=== PATIENT | male | born 1945 | race Caucasian/White ===

== ENCOUNTER 2019-03-06 05:34 | Day surgery (SDC) | payer MEDICARE ==
[2019-03-03 09:31] VITALS: BMI 166.5
[2019-03-06] MEDS ORDERED: EPINEPHrine 1 MG/ML AMP ONE (06:40)
[2019-03-06] MEDS ORDERED: Thrombin 5000 UNITS/5 ML VIAL ONE (06:40)
[2019-03-06] MEDS ORDERED: Bupivacaine PF 0.5% 30 ML VIAL ONE (06:40)
[2019-03-06] MEDS ORDERED: Fentanyl 100 MCG/2 ML VIAL ONE (06:42)
[2019-03-06 06:46] LABS: Hemoglobin 14.3 g/dL (14.0-18.0); Mean Corpuscular HGB CONC 34.4 g/dL (32.0-36.0); Mean Corpuscular Volume 99.1 fL (78.0-98.0); Mean Platelet Volume 6.9 fL (7.4-10.4); Platelet Count 260 thou/uL (130-400); RBC Distribution Width 12.4 % (11.5-14.5); Red Blood Cell (RBC) Count 4.21 mill/uL (4.70-6.10)
[2019-03-06 07:03] LABS: Anion Gap 13 mmol/L (10-20); BUN (Urea Nitrogen) 14 mg/dL (8.4-25.7); Calc. Creatinine Clearance 90 mL/min (70-130); Calcium 9.1 mg/dL (7.8-10.44); Carbon Dioxide 25 mmol/L (23-31); Chloride 102 mmol/L (98-107); Estimated GFR-MDRD 88; Glucose 91 mg/dL (83-110); Potassium 4.3 mmol/L (3.5-5.1); Sodium 136 mmol/L (136-145)
--- NOTE | 2019-03-06 07:46 | HP ---
HISTORY OF PRESENT ILLNESS: Mr. Ellington is a pleasant 73-year-old gentleman known to us from prior ACDF some 2 years ago. He returns now with many years of bilateral radiculopathies, left much greater than right, lumbar spine compatible with an L5, partial S1 pattern. He brings an MRI from [facility] reveals central mediated disk protrusion at L5 descending to the left and then descending S1 nerve roots as well as severe foraminal stenosis on the left at L5. Both of these would explain his symptoms very well. He reports having falls and is concerned about this numbness over the same distribution of his pain. He has treated this in the past with injections, medications, physical therapy, and unfortunately continues to progressively worsen. PHYSICAL EXAMINATION: GENERAL: He is alert and oriented x3. NEUROLOGICAL: He has a positive straight leg raise on the left. Motor function exam is actually excellent with 5/5 strength in plantar flexion, dorsiflexion of bilateral lower extremities at the ankle, as well as knee extension and flexion. Sensation is grossly intact to the bilateral lower extremities. PAST MEDICAL HISTORY: Significant for osteoarthritis, chronic pain syndrome. PAST SURGICAL HISTORY: ACDF. CURRENT MEDICATIONS: None. ALLERGIES: NO KNOWN DRUG ALLERGIES. ASSESSMENT: Lumbar radiculopathy. PLAN: Dr. Wiseman met with the patient, reviewed imaging, advocated for a left L5 decompression. He explained to the patient the risks, benefits, and alternatives to the procedure. The patient expressed understanding and elected to move forward with the surgery as discussed. I do believe the patient is mentally competent and capable of making medical decisions for himself. We will move forward with surgery as planned. Job ID: [id number]
[2019-03-06] MEDS ORDERED: Morphine 4 MG/ML VIAL ONE (08:23)
[2019-03-06] MEDS ORDERED: Tamsulosin HCl 0.4 MG CAP ONE (09:39)
--- NOTE | 2019-03-06 10:28 | OP ---
DATE OF PROCEDURE: 03/06/2019 COORDINATOR HOTELS: Bucky Morales PA-C INDICATION: Pain. DIAGNOSIS: Lumbar radiculopathy. PROCEDURE: Left L5 decompression. ANESTHESIA: General. TECHNIQUE: The patient was brought into the operating room and placed under general anesthesia. He was flipped from the supine to prone position on the operating room table. A linear incision was planned over the L5-S1 segment. After prepping and draping and after an appropriate operative pause, the incision was created. The soft tissues were swept left of midline. A self-retaining retractor was placed and a C-arm image was obtained to confirm the appropriate level. After confirming the appropriate level with C-arm fluoroscopy, a high-speed cutting drill bit, as well as 1-, 2- and 3-mm Kerrisons were used to perform a laminectomy along the inferior aspect of L5 on the left. The foraminotomy was extended laterally to encompass the medial aspect of the facet joint, therefore, the foramen over the exiting L5 nerve root in order to decompress the proximal aspect of the exiting L5 and the descending left S1 nerve root. After completing the decompression, the wound was irrigated. Hemostasis was maintained throughout. The wound was then closed in anatomic layers and a pressure dressing was applied. There were no known procedural complications. Job ID: [id number]
[2019-03-06] MEDS ORDERED: Glycopyrrolate 0.2 MG/ML 5 ML SYRINGE ONE (10:46)
[2019-03-06] MEDS ORDERED: Ketorolac Tromethamine 30 MG/ML VIAL ONE (10:46)
[2019-03-06] MEDS ORDERED: PHENYLEPHRINE-NS 100 MCG/ML 10 ML SYRINGE ONE (10:46)
[2019-03-06] MEDS ORDERED: Dexamethasone 20 MG/5 ML VIAL ONE (10:46)
[2019-03-06] MEDS ORDERED: Ondansetron PF 4 MG/2 ML Vial ONE (10:46)
[2019-03-06] MEDS ORDERED: Lidocaine 1% PF 5 ML VIAL ONE (10:46)
[2019-03-06] MEDS ORDERED: Rocuronium Bromide 10 MG/ML (10ML VIAL) ONE (10:46)
[2019-03-06] MEDS ORDERED: PROPOFOL 200 MG/20 ML VIAL ONE (10:46)
[2019-03-06] MEDS ORDERED: Acetaminophen/Codeine 30-300mg Tablet ONE (11:04)
--- NOTE | 2019-03-07 11:04 | EKG ---
Test Reason : PREOP Blood Pressure : / mmHG Vent. Rate : 079 BPM Atrial Rate : 079 BPM P-R Int : 128 ms QRS Dur : 098 ms QT Int : 396 ms P-R-T Axes : 065 065 081 degrees QTc Int : 454 ms Sinus rhythm with Premature supraventricular complexes Otherwise normal ECG When compared with ECG of 27-SEP-2016 22:19, Premature ventricular complexes are no longer Present Premature supraventricular complexes are now Present Confirmed by DR. Fabian GALARZA ([id number]) on 03/07/2019 11:03:54 AM Referred By: GUMARO Confirmed By:DR. Fabian GALARZA
== END 2019-03-06 11:20 | disposition home or self-care (01) ==
LOC: SDC 05:34
PROVIDERS: ATTEND Neurological Surgery
PROC: 01NB0ZZ Release Lumbar Nerve, Open Approach (ICD-10-PCS; principal; 2019-03-06)
DX: M48.061 Spinal stenosis, lumbar region without neurogenic claudication (principal); M51.16 Intervertebral disc disorders with radiculopathy, lumbar region; M19.90 Unspecified osteoarthritis, unspecified site; G89.4 Chronic pain syndrome; Z91.041 Radiographic dye allergy status; Z98.1 Arthrodesis status
CPT/HCPCS: 36415; 76000; 80048; 85027; 93005; 93010; J0171; J0690; J1100; J1885; J2001; J2270; J2405; J2704; J3010; S0020

== ENCOUNTER 2020-07-15 12:17 | Inpatient (IN) | payer MEDICARE ==
[~2020-07-15 12:17] MED LIST: Iopamidol-370 76% 500 ML 1 ML ONE
[2020-07-15 12:55] LABS: #Eosinphils 0.2 thou/uL (0.0-0.7); #Lymphocytes 0.7 thou/uL (1.20-3.40); #Monocytes 0.9 thou/uL (0.11-0.59); #Neutrophils 10.1 thou/uL (1.40-6.50); %Basophils 0.2 % (0.0-1.0); %Eosinophils 1.9 % (0.0-10.0); %Lymphocytes 6.2 % (21.0-51.0); %Monocytes 7.6 % (0.0-10.0); %Neutrophils 84.2 % (42.0-75.0); Hemoglobin 14.4 g/dL (14.0-18.0); Mean Corpuscular HGB CONC 32.8 g/dL (32.0-36.0); Mean Corpuscular Hemoglobin 31.3 pg (27.0-31.0); Mean Corpuscular Volume 95.5 fL (78.0-98.0); Platelet Count 336 thou/uL (130-400); RBC Distribution Width 12.8 % (11.5-14.5)
[2020-07-15 13:11] LABS: ALT (SGPT) 14 U/L (8-55); AST (SGOT) 29 U/L (5-34); Albumin 4.1 g/dL (3.4-4.8); Alkaline Phosphatase 221 U/L (40-110); Anion Gap 16 mmol/L (10-20); BUN (Urea Nitrogen) 11 mg/dL (8.4-25.7); Bilirubin, Total 0.4 mg/dL (0.2-1.2); Calc. Creatinine Clearance 0 mL/min (70-130); Calcium 9.5 mg/dL (7.8-10.44); Carbon Dioxide 23 mmol/L (23-31); Chloride 100 mmol/L (98-107); Glucose 113 mg/dL (83-110); Potassium 3.6 mmol/L (3.5-5.1); Protein, Total 7.1 g/dL (5.8-8.1); Sodium 135 mmol/L (136-145)
[2020-07-15] MEDS ORDERED: Famotidine/PF 20 mg/2ml Vial ONE (13:59)
[2020-07-15] MEDS ORDERED: methylPREDNISolone Sod Succ/PF 125 MG/2 ML VIAL ONE (13:59)
[2020-07-15] MEDS ORDERED: diphenhydrAMINE 50 MG/ML VIAL ONE (13:59)
[2020-07-15 15:55] LABS: Bacteria/HPF None Seen HPF (None Seen); Bilirubin Negative (Negative); Blood, Urine Negative (Negative); Clarity Clear (Clear); Glucose, Urine (Dipstick) Normal (Negative); Ketone, Urine 10 mg/dL (Negative); Leukocyte Negative Leu/uL (Negative); Nitrite Negative (Negative); Protein, Urine (Dipstick) 100 mg/dL (Neg-Trace); RBC/HPF None Seen HPF (0-3); Specific Gravity, Urine 1.014 (1.002-1.036); Squamous Epithelial 0-3 HPF (0-3); Urobilinogen Normal mg/dL (Less than 2); WBC/HPF 0-3 HPF (0-3)
[2020-07-15] MEDS ORDERED: Ondansetron ODT 4 MG TAB PO PRN (16:50)
[2020-07-15] MEDS ORDERED: Senokot S 8.6-50 MG TAB PO PRN (16:50)
[2020-07-15] MEDS ORDERED: Acetaminophen 325 MG TAB PO PRN (16:50)
[2020-07-15 17:52] LABS: #Basophils 0.1 thou/uL (0.0-0.2); #Lymphocytes 0.6 thou/uL (1.20-3.40); #Monocytes 0.1 thou/uL (0.11-0.59); #Neutrophils 13.2 thou/uL (1.40-6.50); %Basophils 0.7 % (0.0-1.0); %Eosinophils 0.1 % (0.0-10.0); %Monocytes 0.4 % (0.0-10.0); %Neutrophils 94.9 % (42.0-75.0); Hemoglobin 14.3 g/dL (14.0-18.0); Mean Corpuscular HGB CONC 33.4 g/dL (32.0-36.0); Mean Corpuscular Hemoglobin 31.9 pg (27.0-31.0); Mean Corpuscular Volume 95.5 fL (78.0-98.0); Platelet Count 311 thou/uL (130-400); RBC Distribution Width 12.8 % (11.5-14.5); Red Blood Cell (RBC) Count 4.49 mill/uL (4.70-6.10); White Blood Cell (WBC) Count 13.9 thou/uL (4.8-10.8)
[2020-07-15] MEDS ORDERED: Morphine 4 MG/ML VIAL SLOW IVP PRN (18:58)
[2020-07-15] MEDS: hydrALAZINE 25 MG TAB PO SCH (20:17)
[2020-07-15] MEDS: Metoprolol Tartrate 5 MG/5 ML VIAL IVP PRN (20:17)
[2020-07-15] MEDS ORDERED: Bisacodyl 5 MG TAB PO SCH (21:15)
[2020-07-15 23:00] VITALS: BMI 25.0
[2020-07-16] MEDS: Polyethylene Glycol 3350 17 GM Packet PO SCH ×2 (00:14→05:24)
[2020-07-16 01:53] LABS: SARS-CoV-2 NAA Rapid Test Not Detected (NotDetected)
[2020-07-16] MEDS ORDERED: Bisacodyl 10 MG SUPP PR SCH (04:15)
[2020-07-16 06:07] LABS: #Lymphocytes 0.9 thou/uL (1.20-3.40); #Monocytes 0.8 thou/uL (0.11-0.59); #Neutrophils 8.8 thou/uL (1.40-6.50); %Basophils 0.1 % (0.0-1.0); %Eosinophils 0.1 % (0.0-10.0); %Lymphocytes 8.1 % (21.0-51.0); %Monocytes 7.6 % (0.0-10.0); %Neutrophils 84.1 % (42.0-75.0); Mean Corpuscular HGB CONC 33.3 g/dL (32.0-36.0); Mean Corpuscular Hemoglobin 31.6 pg (27.0-31.0); Mean Platelet Volume 7.2 fL (7.4-10.4); Platelet Count 299 thou/uL (130-400); RBC Distribution Width 12.8 % (11.5-14.5); Red Blood Cell (RBC) Count 4.43 mill/uL (4.70-6.10); White Blood Cell (WBC) Count 10.5 thou/uL (4.8-10.8)
[2020-07-16 06:27] LABS: ALT (SGPT) 16 U/L (8-55); AST (SGOT) 26 U/L (5-34); Albumin 3.7 g/dL (3.4-4.8); Alkaline Phosphatase 183 U/L (40-110); Anion Gap 15 mmol/L (10-20); BUN (Urea Nitrogen) 13 mg/dL (8.4-25.7); Bilirubin, Total 0.4 mg/dL (0.2-1.2); Calc. Creatinine Clearance 75 mL/min (70-130); Carbon Dioxide 20 mmol/L (23-31); Chloride 99 mmol/L (98-107); Globulin 2.9 g/dL (2.4-3.5); Glucose 158 mg/dL (83-110); Potassium 3.5 mmol/L (3.5-5.1); Protein, Total 6.6 g/dL (5.8-8.1); Sodium 130 mmol/L (136-145)
[2020-07-16] MEDS: hydrALAZINE 25 MG TAB PO SCH ×3 (08:23→21:23)
[2020-07-16] MEDS ORDERED: Sodium Chloride 0.9% 1,000 ML IV SCH ×2 (08:45→16:12)
[2020-07-16] MEDS ORDERED: Fentanyl 100 MCG/2 ML VIAL ONE (11:55)
[2020-07-16] MEDS ORDERED: PROPOFOL 200 MG/20 ML VIAL ONE (12:17)
[2020-07-16] MEDS ORDERED: Succinylcholine 200 MG/10 ml SYRINGE FS ONE (12:17)
[2020-07-16] MEDS ORDERED: Rocuronium Bromide 10 MG/ML (10ML VIAL) ONE (12:17)
[2020-07-16] MEDS ORDERED: Lidocaine 1% PF 5 ML VIAL ONE (12:17)
[2020-07-16] MEDS ORDERED: Dexamethasone 20 MG/5 ML VIAL ONE (12:17)
[2020-07-16] MEDS ORDERED: Ondansetron PF 4 MG/2 ML Vial ONE (12:17)
[2020-07-16] MEDS ORDERED: Glycopyrrolate 0.2 MG/ML 5 ML SYRINGE ONE (12:17)
[2020-07-16] MEDS ORDERED: MEROPENEM 1 GM/50 ML 1 GM in Premix Bag 1 BAG IVPB SCH (15:45)
[2020-07-17 06:21] LABS: #Lymphocytes 0.9 thou/uL (1.20-3.40); #Monocytes 1.4 thou/uL (0.11-0.59); #Neutrophils 11.2 thou/uL (1.40-6.50); %Basophils 0.2 % (0.0-1.0); %Eosinophils 0.1 % (0.0-10.0); %Lymphocytes 6.6 % (21.0-51.0); %Monocytes 10.2 % (0.0-10.0); %Neutrophils 82.8 % (42.0-75.0); Hemoglobin 13.4 g/dL (14.0-18.0); Mean Corpuscular HGB CONC 31.8 g/dL (32.0-36.0); Mean Corpuscular Hemoglobin 30.6 pg (27.0-31.0); Mean Corpuscular Volume 96.1 fL (78.0-98.0); Mean Platelet Volume 7.4 fL (7.4-10.4); Platelet Count 284 thou/uL (130-400); RBC Distribution Width 13.1 % (11.5-14.5); Red Blood Cell (RBC) Count 4.37 mill/uL (4.70-6.10); White Blood Cell (WBC) Count 13.5 thou/uL (4.8-10.8)
[2020-07-17] MEDS: Metoprolol Tartrate 5 MG/5 ML VIAL IVP PRN (06:29)
[2020-07-17 06:45] LABS: Anion Gap 12 mmol/L (10-20); Calc. Creatinine Clearance 86 mL/min (70-130); Calcium 8.5 mg/dL (7.8-10.44); Carbon Dioxide 24 mmol/L (23-31); Chloride 102 mmol/L (98-107); Glucose 105 mg/dL (83-110); Potassium 3.8 mmol/L (3.5-5.1); Sodium 134 mmol/L (136-145)
[2020-07-17 06:53] LABS: BUN (Urea Nitrogen) 17 mg/dL (8.4-25.7)
[2020-07-17] MEDS: hydrALAZINE 20 MG/ML VIAL SLOW IVP PRN (09:10)
[2020-07-17] MEDS: hydrALAZINE 25 MG TAB PO SCH ×2 (09:13→21:01)
[2020-07-17] MEDS ORDERED: Ketamine 50 MG/ML (10ML VIAL) ONE (13:40)
[2020-07-17] MEDS ORDERED: Fentanyl 100 MCG/2 ML VIAL ONE ×2 (13:40→13:55)
[2020-07-17] MEDS ORDERED: Bupivacaine PF 0.5% 30 ML VIAL ONE (13:58)
[2020-07-17] MEDS ORDERED: XYLOCAINE 2%-EPI 1:100,000 20 ML VIAL ONE (13:58)
[2020-07-17] MEDS ORDERED: Rocuronium Bromide 10 MG/ML (10ML VIAL) ONE (14:21)
[2020-07-17] MEDS ORDERED: Ondansetron PF 4 MG/2 ML Vial ONE (14:21)
[2020-07-17] MEDS ORDERED: Succinylcholine 200 MG/10 ml SYRINGE FS ONE (14:21)
[2020-07-17] MEDS ORDERED: PROPOFOL 200 MG/20 ML VIAL ONE (14:21)
[2020-07-17] MEDS ORDERED: Lidocaine 1% PF 5 ML VIAL ONE (14:21)
[2020-07-17] MEDS ORDERED: PHENYLEPHRINE-NS 100 MCG/ML 10 ML SYRINGE ONE (14:21)
[2020-07-17] MEDS ORDERED: Dexamethasone 20 MG/5 ML VIAL ONE (14:21)
[2020-07-17] MEDS ORDERED: Glycopyrrolate 0.2 MG/ML 5 ML SYRINGE ONE (14:21)
[2020-07-17] MEDS ORDERED: Bupivacaine HCl 0.5%/Epinephrine 1:200,000/PF 30 ml Vial ONE (14:21)
[2020-07-17] MEDS ORDERED: SUGAMMADEX SODIUM 200 MG/2 ML VIAL ONE (15:15)
[2020-07-17] MEDS ORDERED: Ketorolac Tromethamine 30 MG/ML VIAL IVP PRN (15:36)
[2020-07-17] MEDS ORDERED: Acetaminophen 500 MG TAB PO PRN (15:36)
[2020-07-17] MEDS ORDERED: traMADol HCl 50 MG TAB PO PRN (15:36)
[2020-07-17] MEDS ORDERED: Ibuprofen 600 MG TAB PO PRN (15:36)
[2020-07-17] MEDS ORDERED: Morphine 4 MG/ML VIAL SLOW IVP PRN (15:39)
[2020-07-17] MEDS: Sodium Chloride 0.9% 1,000 ML IV SCH (17:38)
[2020-07-17] MEDS: Gabapentin 300 MG CAP PO SCH (21:01)
[2020-07-18 06:27] LABS: #Eosinphils 0.1 thou/uL (0.0-0.7); #Lymphocytes 0.8 thou/uL (1.20-3.40); #Monocytes 1.5 thou/uL (0.11-0.59); #Neutrophils 9.4 thou/uL (1.40-6.50); %Basophils 0.1 % (0.0-1.0); %Eosinophils 1.3 % (0.0-10.0); %Monocytes 12.6 % (0.0-10.0); Hemoglobin 13.7 g/dL (14.0-18.0); Mean Corpuscular HGB CONC 32.1 g/dL (32.0-36.0); Mean Corpuscular Hemoglobin 31.5 pg (27.0-31.0); Mean Platelet Volume 7.5 fL (7.4-10.4); Platelet Count 249 thou/uL (130-400); RBC Distribution Width 13.2 % (11.5-14.5); Red Blood Cell (RBC) Count 4.35 mill/uL (4.70-6.10); White Blood Cell (WBC) Count 11.9 thou/uL (4.8-10.8)
[2020-07-18] MEDS: Gabapentin 300 MG CAP PO SCH ×2 (08:28→15:53)
[2020-07-18] MEDS: hydrALAZINE 25 MG TAB PO SCH ×2 (08:28→20:30)
[2020-07-18 08:37] LABS: Anion Gap 10 mmol/L (10-20); BUN (Urea Nitrogen) 16 mg/dL (8.4-25.7); Calc. Creatinine Clearance 96 mL/min (70-130); Carbon Dioxide 28 mmol/L (23-31); Chloride 103 mmol/L (98-107); Glucose 97 mg/dL (83-110); Magnesium 2.1 mg/dL (1.6-2.6); Sodium 137 mmol/L (136-145)
[2020-07-18] MEDS: Sodium Chloride 0.9% 1,000 ML IV SCH ×2 (11:21→14:13)
[2020-07-19 05:47] LABS: #Eosinphils 0.5 thou/uL (0.0-0.7); #Lymphocytes 0.8 thou/uL (1.20-3.40); #Monocytes 1.1 thou/uL (0.11-0.59); #Neutrophils 8.8 thou/uL (1.40-6.50); %Basophils 0.2 % (0.0-1.0); %Eosinophils 4.4 % (0.0-10.0); %Lymphocytes 7.5 % (21.0-51.0); %Monocytes 9.6 % (0.0-10.0); %Neutrophils 78.3 % (42.0-75.0); Hemoglobin 12.8 g/dL (14.0-18.0); Mean Corpuscular HGB CONC 31.5 g/dL (32.0-36.0); Mean Corpuscular Hemoglobin 31.1 pg (27.0-31.0); Mean Corpuscular Volume 98.5 fL (78.0-98.0); Mean Platelet Volume 7.1 fL (7.4-10.4); Platelet Count 252 thou/uL (130-400); RBC Distribution Width 13.1 % (11.5-14.5); Red Blood Cell (RBC) Count 4.11 mill/uL (4.70-6.10); White Blood Cell (WBC) Count 11.2 thou/uL (4.8-10.8)
[2020-07-19 06:13] LABS: Anion Gap 10 mmol/L (10-20); BUN (Urea Nitrogen) 16 mg/dL (8.4-25.7); Calc. Creatinine Clearance 91 mL/min (70-130); Calcium 8.2 mg/dL (7.8-10.44); Carbon Dioxide 27 mmol/L (23-31); Chloride 102 mmol/L (98-107); Glucose 96 mg/dL (83-110); Magnesium 1.9 mg/dL (1.6-2.6); Potassium 3.6 mmol/L (3.5-5.1); Sodium 135 mmol/L (136-145)
[2020-07-19] MEDS: Tamsulosin HCl 0.4 MG CAP PO SCH (09:42)
[2020-07-19] MEDS: hydrALAZINE 25 MG TAB PO SCH ×2 (09:42→20:12)
[2020-07-20] MEDS: hydrALAZINE 20 MG/ML VIAL SLOW IVP PRN (04:25)
[2020-07-20 06:26] LABS: #Eosinphils 0.6 thou/uL (0.0-0.7); #Lymphocytes 0.8 thou/uL (1.20-3.40); #Monocytes 1.2 thou/uL (0.11-0.59); #Neutrophils 8.5 thou/uL (1.40-6.50); %Basophils 0.1 % (0.0-1.0); %Eosinophils 5.5 % (0.0-10.0); %Lymphocytes 7.1 % (21.0-51.0); %Monocytes 10.9 % (0.0-10.0); %Neutrophils 76.4 % (42.0-75.0); Hemoglobin 12.8 g/dL (14.0-18.0); Mean Corpuscular Hemoglobin 31.9 pg (27.0-31.0); Mean Corpuscular Volume 96.6 fL (78.0-98.0); Platelet Count 208 thou/uL (130-400); RBC Distribution Width 12.8 % (11.5-14.5); White Blood Cell (WBC) Count 11.2 thou/uL (4.8-10.8)
[2020-07-20 06:49] LABS: Anion Gap 11 mmol/L (10-20); BUN (Urea Nitrogen) 10 mg/dL (8.4-25.7); Calc. Creatinine Clearance 102 mL/min (70-130); Calcium 8.4 mg/dL (7.8-10.44); Carbon Dioxide 26 mmol/L (23-31); Chloride 101 mmol/L (98-107); Glucose 109 mg/dL (83-110); Magnesium 1.8 mg/dL (1.6-2.6); Potassium 3.6 mmol/L (3.5-5.1); Sodium 134 mmol/L (136-145)
[2020-07-20] MEDS: hydrALAZINE 25 MG TAB PO SCH (08:09)
[2020-07-20] MEDS: Tamsulosin HCl 0.4 MG CAP PO SCH (08:10)
[2020-07-20 11:40] VITALS: BP 133/70; TEMP 98.5
== END 2020-07-20 12:21 | disposition home or self-care (01) | DRG 330 ==
LOC: ERS 12:17 → SURG B 16:34
PROVIDERS: ADMIT Internal Medicine; ATTEND Internal Medicine
PROC: 0DBP8ZX Excision of Rectum, Via Natural or Artificial Opening Endoscopic, Diagnostic (ICD-10-PCS; 2020-07-16)
PROC: 0D1L0Z4 Bypass Transverse Colon to Cutaneous, Open Approach (ICD-10-PCS; principal; 2020-07-17)
PROC: 0JH60WZ Insertion of Totally Implantable Vascular Access Device into Chest Subcutaneous Tissue and Fascia, Open Approach (ICD-10-PCS; 2020-07-17)
PROC: 02HV33Z Insertion of Infusion Device into Superior Vena Cava, Percutaneous Approach (ICD-10-PCS; 2020-07-17)
PROC: B5180ZA Fluoroscopy of Superior Vena Cava using High Osmolar Contrast, Guidance (ICD-10-PCS; 2020-07-17)
PROC: 0T9B70Z Drainage of Bladder with Drainage Device, Via Natural or Artificial Opening (ICD-10-PCS; 2020-07-18)
DX: C19 Malignant neoplasm of rectosigmoid junction (principal); C78.7 Secondary malignant neoplasm of liver and intrahepatic bile duct; C78.02 Secondary malignant neoplasm of left lung; C78.01 Secondary malignant neoplasm of right lung; E87.1 Hypo-osmolality and hyponatremia; K56.7 Ileus, unspecified; F10.10 Alcohol abuse, uncomplicated; D72.829 Elevated white blood cell count, unspecified; N40.1 Benign prostatic hyperplasia with lower urinary tract symptoms; Z20.822 Contact with and (suspected) exposure to COVID-19; I10 Essential (primary) hypertension; R00.0 Tachycardia, unspecified; R33.8 Other retention of urine; Z87.891 Personal history of nicotine dependence; Z80.0 Family history of malignant neoplasm of digestive organs
CPT/HCPCS: 36415; 71045; 74177; 80048; 80053; 81003; 81015; 82378; 83605; 83690; 83735; 84484; 85025; 87635; 88305; 88361; 88374; 93005; 93010; 96374; 96375; C1788; J0360; J0690; J1100; J1200; J1642; J2270; J2405; J2704; J2930; J3010; Q9967; S0020; S0028; U0002; U0003; U0005

== ENCOUNTER 2020-07-21 20:57 | Inpatient (IN) | payer MEDICARE ==
[2020-07-21] MEDS ORDERED: Famotidine/PF 20 mg/2ml Vial ONE (21:40)
[2020-07-21] MEDS ORDERED: methylPREDNISolone Sod Succ 40 MG VIAL ONE (21:40)
[2020-07-21] MEDS ORDERED: Ondansetron PF 4 MG/2 ML Vial ONE (21:40)
[2020-07-21] MEDS ORDERED: diphenhydrAMINE 50 MG/ML VIAL ONE (21:40)
[2020-07-21] MEDS ORDERED: Piperacillin/Tazobactam 4.5 GM VIAL ONE (21:40)
[2020-07-21 22:03] LABS: ALT (SGPT) 40 U/L (8-55); AST (SGOT) 49 U/L (5-34); Albumin 3.2 g/dL (3.4-4.8); Alkaline Phosphatase 269 U/L (40-110); Anion Gap 14 mmol/L (10-20); BUN (Urea Nitrogen) 11 mg/dL (8.4-25.7); Bilirubin, Total 0.9 mg/dL (0.2-1.2); Calc. Creatinine Clearance 0 mL/min (70-130); Calcium 8.5 mg/dL (7.8-10.44); Carbon Dioxide 25 mmol/L (23-31); Chloride 95 mmol/L (98-107); Globulin 2.7 g/dL (2.4-3.5); Glucose 118 mg/dL (83-110); Lipase 97 U/L (8-78); Potassium 3.8 mmol/L (3.5-5.1); Protein, Total 5.9 g/dL (5.8-8.1); Sodium 130 mmol/L (136-145)
[2020-07-21 22:08] LABS: Hemoglobin 13.1 g/dL (14.0-18.0); Mean Corpuscular HGB CONC 34.3 g/dL (32.0-36.0); Mean Corpuscular Hemoglobin 33.1 pg (27.0-31.0); Mean Corpuscular Volume 96.5 fL (78.0-98.0); RBC Distribution Width 12.7 % (11.5-14.5); Red Blood Cell (RBC) Count 3.97 mill/uL (4.70-6.10)
[2020-07-21] MEDS ORDERED: Vancomycin 1 GM/200 ML BAG ONE (22:23)
[2020-07-21 22:29] LABS: Band 23 % (5-11); Eosinophils 2 % (0-10); Lymphocytes 2 % (21-51); MDiff Complete? YES; Mean Platelet Volume 6.9 fL (7.4-10.4); Monocytes 3 % (0-10); Neutrophil 70 % (42-75); Platelet Count 216 thou/uL (130-400); White Blood Cell (WBC) Count 14.4 thou/uL (4.8-10.8)
[2020-07-22] MEDS ORDERED: Ondansetron ODT 4 MG TAB PO PRN (00:33)
[2020-07-22] MEDS ORDERED: HYDROcodone/Acetaminophen 5/325 mg Tablet PO PRN (00:33)
[2020-07-22] MEDS ORDERED: Ondansetron PF 4 MG/2 ML Vial IVP PRN (00:33)
[2020-07-22] MEDS ORDERED: Vancomycin 1 GM in Premix Bag 1 BAG IVPB SCH (02:15)
[2020-07-22] MEDS: Sodium Chloride 0.9% 1,000 ML IV SCH ×3 (03:00→21:11)
[2020-07-22] MEDS ORDERED: Vancomycin 1 GM/200 ML BAG ONE (03:26)
[2020-07-22 05:36] LABS: #Basophils 0.1 thou/uL (0.0-0.2); #Lymphocytes 0.3 thou/uL (1.20-3.40); #Monocytes 0.2 thou/uL (0.11-0.59); #Neutrophils 11.3 thou/uL (1.40-6.50); %Basophils 0.4 % (0.0-1.0); %Lymphocytes 2.1 % (21.0-51.0); %Monocytes 1.9 % (0.0-10.0); %Neutrophils 95.5 % (42.0-75.0); Hemoglobin 11.4 g/dL (14.0-18.0); Mean Corpuscular Volume 96.6 fL (78.0-98.0); Mean Platelet Volume 6.9 fL (7.4-10.4); Platelet Count 213 thou/uL (130-400); RBC Distribution Width 12.8 % (11.5-14.5); Red Blood Cell (RBC) Count 3.81 mill/uL (4.70-6.10); White Blood Cell (WBC) Count 11.9 thou/uL (4.8-10.8)
[2020-07-22 05:52] LABS: Anion Gap 12 mmol/L (10-20); BUN (Urea Nitrogen) 9 mg/dL (8.4-25.7); Calc. Creatinine Clearance 103 mL/min (70-130); Calcium 8.1 mg/dL (7.8-10.44); Carbon Dioxide 25 mmol/L (23-31); Chloride 100 mmol/L (98-107); Glucose 154 mg/dL (83-110); Potassium 4.1 mmol/L (3.5-5.1); Sodium 133 mmol/L (136-145)
[2020-07-22] MEDS ORDERED: Labetalol HCl 100 MG/20 ML VIAL SLOW IVP PRN (08:36)
[2020-07-22] MEDS ORDERED: Sodium Chloride 0.65% Nasal 44 ML BOT EA NARE PRN (08:36)
[2020-07-22] MEDS ORDERED: Senokot S 8.6-50 MG TAB PO PRN (08:36)
[2020-07-22] MEDS ORDERED: Cepastat Lozenges 1 LOZ PO PRN (08:36)
[2020-07-22] MEDS ORDERED: Bisacodyl 5 MG TAB PO PRN (08:36)
[2020-07-22] MEDS ORDERED: GUAIFENESIN SF SOLN 200 MG/10 ML UDCUP PO PRN (08:36)
[2020-07-22] MEDS ORDERED: Loratadine 10 MG TAB PO PRN (08:36)
[2020-07-22] MEDS ORDERED: Metoprolol Tartrate 5 MG/5 ML VIAL IVP PRN ×2 (08:37→19:52)
[2020-07-22] MEDS ORDERED: Pantoprazole 40 MG VIAL IVP SCH (09:00)
[2020-07-22] MEDS: Piperacillin/Tazobactam 3.375 GM in Sodium Chloride 0.9% 100 ML IVPB SCH ×3 (10:55→21:15)
[2020-07-22] MEDS ORDERED: Vancomycin HCl 1.5 GM in Sodium Chloride 0.9% 500 ML IVPB SCH (11:00)
[2020-07-22] MEDS: Tamsulosin HCl 0.4 MG CAP PO SCH (11:46)
[2020-07-22] MEDS: Enoxaparin Sodium 40 MG/0.4 ML SYRINGE SC SCH (11:46)
[2020-07-22] MEDS: Morphine 4 MG/ML VIAL SLOW IVP PRN (11:55)
[2020-07-22 14:13] LABS: SARS-CoV-2 PCR by NAA Not Detected (NotDetected)
[2020-07-22] MEDS: VANCOMYCIN 1.25 GM/250 ML BAG 1.25 GM in Premix Bag 1 BAG IVPB SCH (14:50)
[2020-07-22] MEDS: Acetaminophen 325 MG TAB PO PRN (16:14)
[2020-07-23] MEDS: VANCOMYCIN 1.25 GM/250 ML BAG 1.25 GM in Premix Bag 1 BAG IVPB SCH (01:48)
[2020-07-23] MEDS: Sodium Chloride 0.9% 1,000 ML IV SCH (01:49)
[2020-07-23 04:48] LABS: #Eosinphils 0.2 thou/uL (0.0-0.7); #Lymphocytes 0.7 thou/uL (1.20-3.40); #Monocytes 1.2 thou/uL (0.11-0.59); #Neutrophils 10.8 thou/uL (1.40-6.50); %Basophils 0.2 % (0.0-1.0); %Eosinophils 1.2 % (0.0-10.0); %Lymphocytes 5.6 % (21.0-51.0); %Monocytes 9.1 % (0.0-10.0); %Neutrophils 83.8 % (42.0-75.0); Hemoglobin 11.4 g/dL (14.0-18.0); Mean Corpuscular HGB CONC 32.7 g/dL (32.0-36.0); Mean Corpuscular Hemoglobin 31.7 pg (27.0-31.0); Mean Platelet Volume 6.7 fL (7.4-10.4); Platelet Count 235 thou/uL (130-400); RBC Distribution Width 12.9 % (11.5-14.5); Red Blood Cell (RBC) Count 3.59 mill/uL (4.70-6.10); White Blood Cell (WBC) Count 12.8 thou/uL (4.8-10.8)
[2020-07-23 05:19] LABS: ALT (SGPT) 23 U/L (8-55); AST (SGOT) 23 U/L (5-34); Albumin 2.5 g/dL (3.4-4.8); Alkaline Phosphatase 168 U/L (40-110); Anion Gap 11 mmol/L (10-20); BUN (Urea Nitrogen) 10 mg/dL (8.4-25.7); Bilirubin, Total 0.4 mg/dL (0.2-1.2); Calc. Creatinine Clearance 104 mL/min (70-130); Calcium 7.9 mg/dL (7.8-10.44); Carbon Dioxide 26 mmol/L (23-31); Chloride 102 mmol/L (98-107); Globulin 2.6 g/dL (2.4-3.5); Glucose 106 mg/dL (83-110); Magnesium 1.7 mg/dL (1.6-2.6); Phosphorus 2.3 mg/dL (2.3-4.7); Potassium 3.6 mmol/L (3.5-5.1); Protein, Total 5.1 g/dL (5.8-8.1); Sodium 135 mmol/L (136-145)
[2020-07-23] MEDS: Piperacillin/Tazobactam 3.375 GM in Sodium Chloride 0.9% 100 ML IVPB SCH ×3 (05:38→20:29)
[2020-07-23] MEDS: Enoxaparin Sodium 40 MG/0.4 ML SYRINGE SC SCH (07:52)
[2020-07-23] MEDS: Tamsulosin HCl 0.4 MG CAP PO SCH (07:52)
[2020-07-23] MEDS: Saccharomyces boulardii 250 MG CAP PO SCH (07:52)
[2020-07-23] MEDS: Acetaminophen 325 MG TAB PO PRN ×2 (07:53→20:44)
[2020-07-23] MEDS ORDERED: Nebivolol HCl 5 MG TAB PO SCH ×2 (09:00→12:30)
[2020-07-23 13:19] LABS: Vancomycin, Trough 13.2 ug/mL
[2020-07-23] MEDS: Vancomycin 1.5 GRAM/300 ML BAG 1.5 GM in Premix Bag 1 BAG IVPB SCH (14:55)
[2020-07-23] MEDS: Morphine 4 MG/ML VIAL SLOW IVP PRN (14:56)
[2020-07-24] MEDS: Vancomycin 1.5 GRAM/300 ML BAG 1.5 GM in Premix Bag 1 BAG IVPB SCH ×2 (01:33→15:24)
[2020-07-24 04:53] LABS: #Eosinphils 0.6 thou/uL (0.0-0.7); #Lymphocytes 0.8 thou/uL (1.20-3.40); #Monocytes 1.4 thou/uL (0.11-0.59); #Neutrophils 8.7 thou/uL (1.40-6.50); %Basophils 0.1 % (0.0-1.0); %Eosinophils 4.9 % (0.0-10.0); %Lymphocytes 6.7 % (21.0-51.0); %Monocytes 12.5 % (0.0-10.0); %Neutrophils 75.9 % (42.0-75.0); Hemoglobin 11.2 g/dL (14.0-18.0); Mean Corpuscular HGB CONC 32.6 g/dL (32.0-36.0); Mean Corpuscular Hemoglobin 31.8 pg (27.0-31.0); Mean Corpuscular Volume 97.5 fL (78.0-98.0); Platelet Count 251 thou/uL (130-400); RBC Distribution Width 12.8 % (11.5-14.5); Red Blood Cell (RBC) Count 3.52 mill/uL (4.70-6.10); White Blood Cell (WBC) Count 11.5 thou/uL (4.8-10.8)
[2020-07-24 05:21] LABS: Anion Gap 11 mmol/L (10-20); BUN (Urea Nitrogen) 9 mg/dL (8.4-25.7); Calc. Creatinine Clearance 107 mL/min (70-130); Calcium 8.2 mg/dL (7.8-10.44); Carbon Dioxide 25 mmol/L (23-31); Chloride 103 mmol/L (98-107); Glucose 97 mg/dL (83-110); Potassium 3.6 mmol/L (3.5-5.1); Sodium 135 mmol/L (136-145)
[2020-07-24] MEDS: Piperacillin/Tazobactam 3.375 GM in Sodium Chloride 0.9% 100 ML IVPB SCH ×3 (06:00→21:29)
[2020-07-24] MEDS: Nebivolol HCl 5 MG TAB PO SCH (08:03)
[2020-07-24] MEDS: Tamsulosin HCl 0.4 MG CAP PO SCH (08:03)
[2020-07-24] MEDS: Enoxaparin Sodium 40 MG/0.4 ML SYRINGE SC SCH (08:03)
[2020-07-24] MEDS: Saccharomyces boulardii 250 MG CAP PO SCH (08:03)
[2020-07-24] MEDS: Acetaminophen 325 MG TAB PO PRN (08:13)
[2020-07-25 01:30] LABS: Vancomycin, Trough 18.7 ug/mL
[2020-07-25] MEDS: Vancomycin 1.5 GRAM/300 ML BAG 1.5 GM in Premix Bag 1 BAG IVPB SCH ×2 (03:01→15:55)
[2020-07-25] MEDS: Piperacillin/Tazobactam 3.375 GM in Sodium Chloride 0.9% 100 ML IVPB SCH ×2 (05:51→15:00)
[2020-07-25] MEDS: Saccharomyces boulardii 250 MG CAP PO SCH (10:02)
[2020-07-25] MEDS: Tamsulosin HCl 0.4 MG CAP PO SCH (10:03)
[2020-07-25] MEDS: Nebivolol HCl 5 MG TAB PO SCH (10:29)
[2020-07-25] MEDS: Enoxaparin Sodium 40 MG/0.4 ML SYRINGE SC SCH (10:29)
[2020-07-25] MEDS ORDERED: Fentanyl 100 MCG/2 ML VIAL ONE ×3 (17:30→20:10)
[2020-07-25] MEDS ORDERED: Phenylephrine 10 MG/ML VIAL ONE (17:56)
[2020-07-25] MEDS ORDERED: Rocuronium Bromide 10 MG/ML (10ML VIAL) ONE (18:20)
[2020-07-25] MEDS ORDERED: Lidocaine 1% PF 5 ML VIAL ONE (18:20)
[2020-07-25] MEDS ORDERED: PROPOFOL 200 MG/20 ML VIAL ONE (18:20)
[2020-07-25] MEDS ORDERED: PHENYLEPHRINE-NS 100 MCG/ML 10 ML SYRINGE ONE (18:20)
[2020-07-25] MEDS ORDERED: Succinylcholine 200 MG/10 ml SYRINGE FS ONE (18:20)
[2020-07-25] MEDS ORDERED: SUGAMMADEX SODIUM 500 MG/5 ML VIAL ONE (18:50)
[2020-07-25] MEDS ORDERED: Promethazine HCl 25 MG/ML VIAL IM PRN (19:32)
[2020-07-25] MEDS ORDERED: Promethazine HCl 25 MG/ML VIAL SLOW IVP PRN (19:32)
[2020-07-25] MEDS ORDERED: Ondansetron HCl/PF 4 MG/2 ML Vial IVP PRN (19:32)
[2020-07-25] MEDS: Morphine 4 MG/ML VIAL SLOW IVP PRN (21:35)
[2020-07-25] MEDS: traMADol HCl 50 MG TAB PO SCH (21:41)
[2020-07-25] MEDS: Meropenem 2 GM in Sodium Chloride 0.9% 100 ML IVPB SCH (23:24)
[2020-07-25] MEDS: Sodium Chloride 0.9% 1,000 ML IV SCH (23:37)
[2020-07-26] MEDS: Morphine 4 MG/ML VIAL SLOW IVP PRN ×2 (03:40→09:52)
[2020-07-26 04:44] LABS: #Basophils 0.1 thou/uL (0.0-0.2); #Eosinphils 0.5 thou/uL (0.0-0.7); #Lymphocytes 0.8 thou/uL (1.20-3.40); #Monocytes 1.2 thou/uL (0.11-0.59); #Neutrophils 8.9 thou/uL (1.40-6.50); %Basophils 0.5 % (0.0-1.0); %Eosinophils 4.5 % (0.0-10.0); %Lymphocytes 7.1 % (21.0-51.0); %Monocytes 10.1 % (0.0-10.0); %Neutrophils 77.8 % (42.0-75.0); Mean Corpuscular HGB CONC 33.2 g/dL (32.0-36.0); Mean Corpuscular Hemoglobin 32.7 pg (27.0-31.0); Mean Corpuscular Volume 98.5 fL (78.0-98.0); Mean Platelet Volume 6.5 fL (7.4-10.4); Platelet Count 326 thou/uL (130-400); RBC Distribution Width 12.7 % (11.5-14.5); Red Blood Cell (RBC) Count 3.68 mill/uL (4.70-6.10); White Blood Cell (WBC) Count 11.4 thou/uL (4.8-10.8)
[2020-07-26 05:10] LABS: Anion Gap 12 mmol/L (10-20); BUN (Urea Nitrogen) 7 mg/dL (8.4-25.7); Calc. Creatinine Clearance 113 mL/min (70-130); Calcium 7.9 mg/dL (7.8-10.44); Carbon Dioxide 24 mmol/L (23-31); Chloride 103 mmol/L (98-107); Glucose 104 mg/dL (83-110); Potassium 3.7 mmol/L (3.5-5.1); Sodium 135 mmol/L (136-145)
[2020-07-26] MEDS: Meropenem 2 GM in Sodium Chloride 0.9% 100 ML IVPB SCH (06:37)
[2020-07-26] MEDS: Enoxaparin Sodium 40 MG/0.4 ML SYRINGE SC SCH (07:56)
[2020-07-26] MEDS: Tamsulosin HCl 0.4 MG CAP PO SCH (07:57)
[2020-07-26] MEDS: Saccharomyces boulardii 250 MG CAP PO SCH (07:57)
[2020-07-26] MEDS: Nebivolol HCl 5 MG TAB PO SCH (07:57)
[2020-07-26] MEDS: traMADol HCl 50 MG TAB PO SCH ×4 (07:57→20:56)
[2020-07-26] MEDS: Sodium Chloride 0.9% 1,000 ML IV SCH ×2 (09:56→20:52)
[2020-07-26 16:35] LABS: Bacteria/HPF None Seen HPF (None Seen); Bilirubin Negative (Negative); Blood, Urine Trace (Negative); Clarity Clear (Clear); Glucose, Urine (Dipstick) Normal (Negative); Ketone, Urine 20 mg/dL (Negative); Leukocyte Negative Leu/uL (Negative); Nitrite Negative (Negative); Protein, Urine (Dipstick) 100 mg/dL (Neg-Trace); Specific Gravity, Urine 1.025 (1.002-1.036); Squamous Epithelial None Seen HPF (0-3); Urobilinogen Normal mg/dL (Less than 2); WBC/HPF 0-3 HPF (0-3)
[2020-07-26 16:37] LABS: Urine Culture Reflex No No
[2020-07-26] MEDS ORDERED: Morphine 4 MG/ML VIAL SLOW IVP PRN (20:10)
[2020-07-27] MEDS: Sodium Chloride 0.9% 1,000 ML IV SCH (05:00)
[2020-07-27 05:10] LABS: #Eosinphils 0.9 thou/uL (0.0-0.7); #Lymphocytes 1.1 thou/uL (1.20-3.40); #Monocytes 1.3 thou/uL (0.11-0.59); %Eosinophils 8.3 % (0.0-10.0); %Lymphocytes 9.7 % (21.0-51.0); %Monocytes 11.3 % (0.0-10.0); %Neutrophils 70.7 % (42.0-75.0); Hemoglobin 11.6 g/dL (14.0-18.0); Mean Corpuscular HGB CONC 30.8 g/dL (32.0-36.0); Mean Corpuscular Hemoglobin 30.1 pg (27.0-31.0); Mean Corpuscular Volume 97.7 fL (78.0-98.0); Mean Platelet Volume 6.5 fL (7.4-10.4); Platelet Count 347 thou/uL (130-400); RBC Distribution Width 12.8 % (11.5-14.5); Red Blood Cell (RBC) Count 3.86 mill/uL (4.70-6.10); White Blood Cell (WBC) Count 11.3 thou/uL (4.8-10.8)
[2020-07-27 05:32] LABS: Anion Gap 7 mmol/L (10-20); BUN (Urea Nitrogen) 9 mg/dL (8.4-25.7); CRP (Inflammatory) 13.29 mg/dL (= or < 0.5); Calc. Creatinine Clearance 113 mL/min (70-130); Calcium 7.9 mg/dL (7.8-10.44); Carbon Dioxide 28 mmol/L (23-31); Chloride 103 mmol/L (98-107); Glucose 100 mg/dL (83-110); Magnesium 1.7 mg/dL (1.6-2.6); Potassium 3.6 mmol/L (3.5-5.1); Sodium 134 mmol/L (136-145)
[2020-07-27] MEDS: Nebivolol HCl 5 MG TAB PO SCH (08:39)
[2020-07-27] MEDS: Tamsulosin HCl 0.4 MG CAP PO SCH (08:39)
[2020-07-27] MEDS: Saccharomyces boulardii 250 MG CAP PO SCH (08:39)
[2020-07-27] MEDS: Enoxaparin Sodium 40 MG/0.4 ML SYRINGE SC SCH (08:39)
[2020-07-27] MEDS: traMADol HCl 50 MG TAB PO SCH ×4 (08:40→20:26)
[2020-07-28 04:54] LABS: #Eosinphils 1.1 thou/uL (0.0-0.7); #Lymphocytes 0.9 thou/uL (1.20-3.40); #Monocytes 1.1 thou/uL (0.11-0.59); #Neutrophils 7.8 thou/uL (1.40-6.50); %Basophils 0.4 % (0.0-1.0); %Eosinophils 10.4 % (0.0-10.0); %Lymphocytes 8.4 % (21.0-51.0); %Monocytes 9.9 % (0.0-10.0); %Neutrophils 70.8 % (42.0-75.0); Hemoglobin 11.6 g/dL (14.0-18.0); Mean Corpuscular HGB CONC 31.2 g/dL (32.0-36.0); Mean Corpuscular Hemoglobin 30.4 pg (27.0-31.0); Mean Corpuscular Volume 97.4 fL (78.0-98.0); Mean Platelet Volume 6.5 fL (7.4-10.4); Platelet Count 325 thou/uL (130-400); RBC Distribution Width 12.8 % (11.5-14.5); Red Blood Cell (RBC) Count 3.83 mill/uL (4.70-6.10); White Blood Cell (WBC) Count 10.9 thou/uL (4.8-10.8)
[2020-07-28 05:16] LABS: Anion Gap 9 mmol/L (10-20); BUN (Urea Nitrogen) 9 mg/dL (8.4-25.7); Calc. Creatinine Clearance 107 mL/min (70-130); Calcium 8.2 mg/dL (7.8-10.44); Carbon Dioxide 28 mmol/L (23-31); Chloride 101 mmol/L (98-107); Glucose 97 mg/dL (83-110); Potassium 3.6 mmol/L (3.5-5.1); Sodium 134 mmol/L (136-145)
[2020-07-28] MEDS: traMADol HCl 50 MG TAB PO SCH ×4 (08:16→20:55)
[2020-07-28] MEDS: Enoxaparin Sodium 40 MG/0.4 ML SYRINGE SC SCH (08:16)
[2020-07-28] MEDS: Saccharomyces boulardii 250 MG CAP PO SCH (08:17)
[2020-07-28] MEDS: Nebivolol HCl 5 MG TAB PO SCH (08:17)
[2020-07-28] MEDS: Tamsulosin HCl 0.4 MG CAP PO SCH (08:17)
[2020-07-28] MEDS ORDERED: Melatonin 3 MG TAB PO PRN (20:58)
[2020-07-29 04:28] LABS: #Eosinphils 1.1 thou/uL (0.0-0.7); #Monocytes 1.2 thou/uL (0.11-0.59); #Neutrophils 8.2 thou/uL (1.40-6.50); %Basophils 0.4 % (0.0-1.0); %Eosinophils 9.6 % (0.0-10.0); %Lymphocytes 8.7 % (21.0-51.0); %Neutrophils 71.3 % (42.0-75.0); Hemoglobin 11.5 g/dL (14.0-18.0); Mean Corpuscular HGB CONC 32.4 g/dL (32.0-36.0); Mean Corpuscular Hemoglobin 31.3 pg (27.0-31.0); Mean Corpuscular Volume 96.8 fL (78.0-98.0); Mean Platelet Volume 6.3 fL (7.4-10.4); Platelet Count 371 thou/uL (130-400); RBC Distribution Width 12.8 % (11.5-14.5); Red Blood Cell (RBC) Count 3.66 mill/uL (4.70-6.10); White Blood Cell (WBC) Count 11.4 thou/uL (4.8-10.8)
[2020-07-29 04:49] LABS: Anion Gap 10 mmol/L (10-20); BUN (Urea Nitrogen) 8 mg/dL (8.4-25.7); Calc. Creatinine Clearance 106 mL/min (70-130); Calcium 8.3 mg/dL (7.8-10.44); Carbon Dioxide 30 mmol/L (23-31); Chloride 99 mmol/L (98-107); Glucose 99 mg/dL (83-110); Sodium 135 mmol/L (136-145)
[2020-07-29] MEDS: Saccharomyces boulardii 250 MG CAP PO SCH (09:07)
[2020-07-29] MEDS: Tamsulosin HCl 0.4 MG CAP PO SCH (09:07)
[2020-07-29] MEDS: Nebivolol HCl 5 MG TAB PO SCH (09:07)
[2020-07-29] MEDS: traMADol HCl 50 MG TAB PO SCH ×4 (09:08→21:03)
[2020-07-29] MEDS: Enoxaparin Sodium 40 MG/0.4 ML SYRINGE SC SCH (09:08)
[2020-07-29] MEDS ORDERED: Furosemide 20 MG/2 ML VIAL SLOW IVP SCH (12:45)
[2020-07-30 05:04] LABS: #Neutrophils 6.2 thou/uL (1.40-6.50); %Basophils 0.4 % (0.0-1.0); %Eosinophils 11.1 % (0.0-10.0); %Lymphocytes 10.4 % (21.0-51.0); %Monocytes 10.3 % (0.0-10.0); %Neutrophils 67.7 % (42.0-75.0); Hemoglobin 10.8 g/dL (14.0-18.0); Mean Corpuscular HGB CONC 33.8 g/dL (32.0-36.0); Mean Corpuscular Hemoglobin 32.5 pg (27.0-31.0); Mean Corpuscular Volume 96.1 fL (78.0-98.0); Mean Platelet Volume 6.4 fL (7.4-10.4); Platelet Count 376 thou/uL (130-400); RBC Distribution Width 12.6 % (11.5-14.5); Red Blood Cell (RBC) Count 3.33 mill/uL (4.70-6.10); White Blood Cell (WBC) Count 9.2 thou/uL (4.8-10.8)
[2020-07-30 05:30] LABS: Anion Gap 10 mmol/L (10-20); BUN (Urea Nitrogen) 7 mg/dL (8.4-25.7); Calc. Creatinine Clearance 106 mL/min (70-130); Calcium 8.1 mg/dL (7.8-10.44); Carbon Dioxide 31 mmol/L (23-31); Chloride 98 mmol/L (98-107); Glucose 92 mg/dL (83-110); Potassium 3.6 mmol/L (3.5-5.1); Sodium 135 mmol/L (136-145)
[2020-07-30] MEDS: Saccharomyces boulardii 250 MG CAP PO SCH (09:27)
[2020-07-30] MEDS: Nebivolol HCl 5 MG TAB PO SCH (09:27)
[2020-07-30] MEDS: Tamsulosin HCl 0.4 MG CAP PO SCH (09:28)
[2020-07-30] MEDS: traMADol HCl 50 MG TAB PO SCH ×4 (09:28→20:20)
[2020-07-30] MEDS: Enoxaparin Sodium 40 MG/0.4 ML SYRINGE SC SCH (09:28)
[2020-07-30] MEDS: Furosemide 40 MG TAB PO SCH (09:28)
[2020-07-30 12:59] VITALS: BMI 28.5
[2020-07-31 05:25] LABS: #Basophils 0.1 thou/uL (0.0-0.2); #Eosinphils 1.1 thou/uL (0.0-0.7); #Lymphocytes 1.3 thou/uL (1.20-3.40); #Neutrophils 6.5 thou/uL (1.40-6.50); %Basophils 0.5 % (0.0-1.0); %Eosinophils 11.4 % (0.0-10.0); %Lymphocytes 12.7 % (21.0-51.0); %Monocytes 10.3 % (0.0-10.0); %Neutrophils 65.1 % (42.0-75.0); Hemoglobin 11.8 g/dL (14.0-18.0); Mean Corpuscular HGB CONC 32.7 g/dL (32.0-36.0); Mean Corpuscular Hemoglobin 31.4 pg (27.0-31.0); Platelet Count 419 thou/uL (130-400); RBC Distribution Width 12.6 % (11.5-14.5); Red Blood Cell (RBC) Count 3.75 mill/uL (4.70-6.10)
[2020-07-31 05:48] LABS: Anion Gap 13 mmol/L (10-20); BUN (Urea Nitrogen) 10 mg/dL (8.4-25.7); Calc. Creatinine Clearance 100 mL/min (70-130); Calcium 8.7 mg/dL (7.8-10.44); Carbon Dioxide 30 mmol/L (23-31); Chloride 96 mmol/L (98-107); Glucose 94 mg/dL (83-110); Potassium 3.8 mmol/L (3.5-5.1); Sodium 135 mmol/L (136-145)
[2020-07-31] MEDS: Saccharomyces boulardii 250 MG CAP PO SCH (09:07)
[2020-07-31] MEDS: Furosemide 40 MG TAB PO SCH (09:07)
[2020-07-31] MEDS: traMADol HCl 50 MG TAB PO SCH ×2 (09:07→13:28)
[2020-07-31] MEDS: Nebivolol HCl 5 MG TAB PO SCH (09:07)
[2020-07-31] MEDS: Tamsulosin HCl 0.4 MG CAP PO SCH (09:09)
[2020-07-31] MEDS: Enoxaparin Sodium 40 MG/0.4 ML SYRINGE SC SCH (09:10)
[2020-07-31 12:06] VITALS: BP 128/79; TEMP 98.2
== END 2020-07-31 15:50 | disposition home health service (06) | DRG 856 ==
LOC: ERS 20:57 → ERHOLD 07-22 00:10 → 2NO 07-22 08:21
PROVIDERS: ADMIT Student in an Organized Health Care Education/Training Program; ATTEND Internal Medicine
PROC: 0WQF0ZZ Repair Abdominal Wall, Open Approach (ICD-10-PCS; principal; 2020-07-25)
PROC: 0T9B70Z Drainage of Bladder with Drainage Device, Via Natural or Artificial Opening (ICD-10-PCS; 2020-07-25)
DX: T81.49XA Infection following a procedure, other surgical site, initial encounter (principal); A41.9 Sepsis, unspecified organism; I50.21 Acute systolic (congestive) heart failure; J96.11 Chronic respiratory failure with hypoxia; L03.311 Cellulitis of abdominal wall; T81.31XA Disruption of external operation (surgical) wound, not elsewhere classified, initial encounter; C19 Malignant neoplasm of rectosigmoid junction; F17.220 Nicotine dependence, chewing tobacco, uncomplicated; Y83.8 Other surgical procedures as the cause of abnormal reaction of the patient, or of later complication, without mention of misadventure at the time of the procedure; N40.1 Benign prostatic hyperplasia with lower urinary tract symptoms; R33.8 Other retention of urine; I25.10 Atherosclerotic heart disease of native coronary artery without angina pectoris; I07.1 Rheumatic tricuspid insufficiency; F10.20 Alcohol dependence, uncomplicated; I48.0 Paroxysmal atrial fibrillation; Z91.041 Radiographic dye allergy status; Z90.49 Acquired absence of other specified parts of digestive tract; Z93.3 Colostomy status; Z85.819 Personal history of malignant neoplasm of unspecified site of lip, oral cavity, and pharynx; Z79.899 Other long term (current) drug therapy
CPT/HCPCS: 36415; 74177; 80048; 80053; 80202; 81001; 83605; 83690; 83735; 84100; 85025; 86140; 87040; 87086; 93005; 93306; 96365; 96366; 96368; 96375; C9113; J1200; J1650; J1940; J2185; J2270; J2370; J2405; J2543; J2704; J2920; J3010; J3370; J3490; Q9967; S0028; U0003; U0005

== ENCOUNTER 2020-08-13 09:01 | Outpatient (CLI) | payer MEDICARE | END 2020-08-13 09:02 | disposition home or self-care (01) | LOC: PET 09:01 | PROVIDERS: ATTEND Internal Medicine Hematology & Oncology | DX: C20 Malignant neoplasm of rectum (principal); C78.7 Secondary malignant neoplasm of liver and intrahepatic bile duct; C78.02 Secondary malignant neoplasm of left lung; C78.01 Secondary malignant neoplasm of right lung | CPT/HCPCS: 78815; A9552 ==

== ENCOUNTER 2020-09-06 13:01 | Observation (INO) | payer MEDICARE ==
[2020-09-06 13:45] LABS: #Eosinphils 0.2 thou/uL (0.0-0.7); #Lymphocytes 0.4 thou/uL (1.20-3.40); #Monocytes 0.2 thou/uL (0.11-0.59); #Neutrophils 14.5 thou/uL (1.40-6.50); %Basophils 0.2 % (0.0-1.0); %Eosinophils 1.3 % (0.0-10.0); %Lymphocytes 2.3 % (21.0-51.0); %Monocytes 1.5 % (0.0-10.0); %Neutrophils 94.8 % (42.0-75.0); Hemoglobin 12.1 g/dL (14.0-18.0); Mean Corpuscular HGB CONC 32.1 g/dL (32.0-36.0); Mean Corpuscular Hemoglobin 29.9 pg (27.0-31.0); Mean Corpuscular Volume 93.2 fL (78.0-98.0); Mean Platelet Volume 6.3 fL (7.4-10.4); Platelet Count 258 thou/uL (130-400); RBC Distribution Width 12.7 % (11.5-14.5); Red Blood Cell (RBC) Count 4.06 mill/uL (4.70-6.10); White Blood Cell (WBC) Count 15.3 thou/uL (4.8-10.8)
[2020-09-06 14:05] LABS: ALT (SGPT) 27 U/L (8-55); AST (SGOT) 36 U/L (5-34); Albumin 3.6 g/dL (3.4-4.8); Alkaline Phosphatase 251 U/L (40-110); Anion Gap 10 mmol/L (10-20); BUN (Urea Nitrogen) 13 mg/dL (8.4-25.7); Bilirubin, Total 0.4 mg/dL (0.2-1.2); Calc. Creatinine Clearance 0 mL/min (70-130); Calcium 8.7 mg/dL (7.8-10.44); Carbon Dioxide 27 mmol/L (23-31); Chloride 102 mmol/L (98-107); Globulin 3.3 g/dL (2.4-3.5); Glucose 118 mg/dL (83-110); Potassium 4.6 mmol/L (3.5-5.1); Protein, Total 6.9 g/dL (5.8-8.1); Sodium 134 mmol/L (136-145)
[2020-09-06] MEDS ORDERED: Metoprolol Tartrate 5 MG/5 ML VIAL ONE (14:45)
[2020-09-06] MEDS ORDERED: cefTRIAXone\\ROCEPHIN 2 GM VIAL ONE (16:07)
[2020-09-06] MEDS ORDERED: Enoxaparin Sodium 80 MG/0.8 ML SYRINGE ONE (16:07)
[2020-09-06 16:14] LABS: Bilirubin Negative (Negative); Blood, Urine Negative (Negative); Clarity Clear (Clear); Glucose, Urine (Dipstick) Normal (Negative); Ketone, Urine Negative (Negative); Leukocyte Negative Leu/uL (Negative); Nitrite Negative (Negative); Protein, Urine (Dipstick) 10 mg/dL (Neg-Trace); Urobilinogen Normal mg/dL (Less than 2)
[2020-09-06] MEDS ORDERED: Acetaminophen 325 MG TAB PO PRN (17:22)
[2020-09-06 17:26] LABS: Lactic Acid 1.4 mmol/L (0.5-2.2)
[2020-09-06 17:31] LABS: Troponin I 0.013 ng/mL (< 0.028)
[2020-09-06 18:05] LABS: SARS-CoV-2 NAA Rapid Test Not Detected (NotDetected)
[2020-09-06] MEDS ORDERED: traMADol HCl 50 MG TAB PO PRN (18:25)
[2020-09-06] MEDS ORDERED: Azithromycin 500 MG VIAL ONE (18:29)
[2020-09-06 20:56] VITALS: BMI 23.1
[2020-09-06] MEDS: Lactated Ringer's 1,000 ML IV SCH (22:23)
[2020-09-06] MEDS: predniSONE 50 MG TAB PO SCH (22:23)
[2020-09-06] MEDS ORDERED: diphenhydrAMINE 50 MG CAP PO SCH (23:59)
[2020-09-07] MEDS: predniSONE 50 MG TAB PO SCH ×2 (03:42→08:58)
[2020-09-07] MEDS: Lactated Ringer's 1,000 ML IV SCH ×2 (03:47→08:57)
[2020-09-07 05:17] LABS: #Basophils 0.1 thou/uL (0.0-0.2); #Lymphocytes 0.3 thou/uL (1.20-3.40); #Monocytes 0.1 thou/uL (0.11-0.59); #Neutrophils 13.7 thou/uL (1.40-6.50); %Basophils 0.8 % (0.0-1.0); %Eosinophils 0.1 % (0.0-10.0); %Lymphocytes 2.1 % (21.0-51.0); %Monocytes 0.7 % (0.0-10.0); %Neutrophils 96.3 % (42.0-75.0); Hemoglobin 10.6 g/dL (14.0-18.0); Mean Corpuscular Hemoglobin 31.9 pg (27.0-31.0); Mean Platelet Volume 6.5 fL (7.4-10.4); Platelet Count 194 thou/uL (130-400); RBC Distribution Width 12.9 % (11.5-14.5); Red Blood Cell (RBC) Count 3.31 mill/uL (4.70-6.10); White Blood Cell (WBC) Count 14.2 thou/uL (4.8-10.8)
[2020-09-07 05:37] LABS: ALT (SGPT) 24 U/L (8-55); AST (SGOT) 29 U/L (5-34); Albumin 3.3 g/dL (3.4-4.8); Alkaline Phosphatase 201 U/L (40-110); Anion Gap 10 mmol/L (10-20); BUN (Urea Nitrogen) 15 mg/dL (8.4-25.7); Bilirubin, Total 0.3 mg/dL (0.2-1.2); Calc. Creatinine Clearance 89 mL/min (70-130); Calcium 8.6 mg/dL (7.8-10.44); Carbon Dioxide 23 mmol/L (23-31); Chloride 103 mmol/L (98-107); Globulin 2.8 g/dL (2.4-3.5); Glucose 151 mg/dL (83-110); Potassium 4.2 mmol/L (3.5-5.1); Protein, Total 6.1 g/dL (5.8-8.1); Sodium 132 mmol/L (136-145)
[2020-09-07] MEDS ORDERED: Furosemide 40 MG TAB PO SCH (07:30)
[2020-09-07] MEDS ORDERED: predniSONE 50 MG TAB PO SCH (08:00)
[2020-09-07] MEDS: Tamsulosin HCl 0.4 MG CAP PO SCH (08:58)
[2020-09-07] MEDS ORDERED: Enoxaparin Sodium 40 MG/0.4 ML SYRINGE SC SCH (09:00)
[2020-09-07] MEDS ORDERED: diphenhydrAMINE 50 MG CAP PO SCH (09:00)
[2020-09-07] MEDS ORDERED: Iopamidol-370 76% 500 ML 1 ML ONE (10:19)
[2020-09-07] MEDS: Carvedilol 6.25 MG TAB PO SCH (17:01)
[2020-09-07] MEDS: Apixaban 5 MG TAB PO SCH (21:54)
[2020-09-08] MEDS: Carvedilol 6.25 MG TAB PO SCH (09:02)
[2020-09-08] MEDS: Apixaban 5 MG TAB PO SCH (09:02)
[2020-09-08] MEDS: Tamsulosin HCl 0.4 MG CAP PO SCH (09:03)
[2020-09-08 09:16] VITALS: BP 114/60; TEMP 97.7
[2020-09-15] MEDS ORDERED: Apixaban 5 MG TAB PO SCH (09:00)
== END 2020-09-08 11:45 | disposition home or self-care (01) ==
LOC: ERS 13:01 → 2SW 18:29
PROVIDERS: ADMIT Student in an Organized Health Care Education/Training Program; ATTEND Student in an Organized Health Care Education/Training Program
DX: R06.02 Shortness of breath (principal); R65.10 Systemic inflammatory response syndrome (SIRS) of non-infectious origin without acute organ dysfunction; R00.0 Tachycardia, unspecified; E86.0 Dehydration; E87.2 Acidosis; R74.01 Elevation of levels of liver transaminase levels; C18.9 Malignant neoplasm of colon, unspecified; C78.7 Secondary malignant neoplasm of liver and intrahepatic bile duct; F17.220 Nicotine dependence, chewing tobacco, uncomplicated; G89.29 Other chronic pain; I50.9 Heart failure, unspecified; I48.91 Unspecified atrial fibrillation; K21.9 Gastro-esophageal reflux disease without esophagitis; J44.9 Chronic obstructive pulmonary disease, unspecified; R91.8 Other nonspecific abnormal finding of lung field; K44.9 Diaphragmatic hernia without obstruction or gangrene; I07.1 Rheumatic tricuspid insufficiency; F10.11 Alcohol abuse, in remission; C06.9 Malignant neoplasm of mouth, unspecified; Z79.899 Other long term (current) drug therapy; Z91.013 Allergy to seafood; Z91.041 Radiographic dye allergy status; Z93.3 Colostomy status; Z20.822 Contact with and (suspected) exposure to COVID-19
CPT/HCPCS: 0240U; 71045; 71250; 71275; 80053 ×2; 81003; 83605; 83880; 84484 ×2; 85025 ×2; 87040; 93005; 93306; 96365; 96367; 96372 ×2; 96375; 97116; 99285; G0378 ×4; 36415; J0456; J0696; J1650; J7512; Q9967

== ENCOUNTER 2020-11-07 08:26 | Day surgery (SDC) | payer MEDICARE ==
[2020-11-07] MEDS ORDERED: Sodium Chloride 0.9% 20 ML ONE (08:58)
[2020-11-07] MEDS ORDERED: Acetaminophen 500 MG TAB PO SCH (09:00)
[2020-11-07] MEDS ORDERED: diphenhydrAMINE 25 MG CAP PO SCH (09:00)
[2020-11-07 14:53] VITALS: TEMP 98.2
[2020-11-07 14:54] VITALS: BP 128/62
== END 2020-11-07 14:55 | disposition home or self-care (01) ==
LOC: ONC/OP 08:26
PROVIDERS: ATTEND Internal Medicine Hematology & Oncology
PROC: 30233N1 Transfusion of Nonautologous Red Blood Cells into Peripheral Vein, Percutaneous Approach (ICD-10-PCS; principal; 2020-11-07)
DX: D64.9 Anemia, unspecified (principal); D69.6 Thrombocytopenia, unspecified; Z91.013 Allergy to seafood; Z91.041 Radiographic dye allergy status
CPT/HCPCS: 36430; 86850; 86900; 86901; J1642; P9016; Q0163

== ENCOUNTER 2020-12-31 11:43 | Day surgery (SDC) | payer MEDICARE ==
[2020-12-31] MEDS ORDERED: Sodium Chloride 0.9% 20 ML ONE (11:59)
[2020-12-31] MEDS ORDERED: Acetaminophen 500 MG TAB PO SCH (12:15)
[2020-12-31] MEDS ORDERED: diphenhydrAMINE 25 MG CAP PO SCH (12:15)
[2020-12-31 17:17] VITALS: BP 134/60; TEMP 97.6
== END 2020-12-31 17:17 | disposition home or self-care (01) ==
LOC: ONC/OP 11:43
PROVIDERS: ATTEND Internal Medicine Hematology & Oncology
PROC: 30233N1 Transfusion of Nonautologous Red Blood Cells into Peripheral Vein, Percutaneous Approach (ICD-10-PCS; principal; 2020-12-31)
DX: D64.9 Anemia, unspecified (principal); D69.6 Thrombocytopenia, unspecified; Z91.013 Allergy to seafood; Z91.041 Radiographic dye allergy status
CPT/HCPCS: 36430; 86850; 86900; 86901; J1642; P9016

== ENCOUNTER 2021-01-30 10:14 | Outpatient (CLI) | payer MEDICARE | END 2021-01-30 10:15 | disposition home or self-care (01) | LOC: PET 10:14 | PROVIDERS: ATTEND Internal Medicine Hematology & Oncology | DX: C20 Malignant neoplasm of rectum (principal); J90 Pleural effusion, not elsewhere classified; C79.9 Secondary malignant neoplasm of unspecified site | CPT/HCPCS: 78815; A9552 ==

== ENCOUNTER 2021-05-06 12:30 | Outpatient (CLI) | payer MEDICARE | END 2021-05-06 12:31 | disposition home or self-care (01) | LOC: PET 12:30 | PROVIDERS: ATTEND Internal Medicine Hematology & Oncology | DX: C20 Malignant neoplasm of rectum (principal); C78.7 Secondary malignant neoplasm of liver and intrahepatic bile duct | CPT/HCPCS: 78815; A9552 ==

== ENCOUNTER 2021-07-29 10:15 | Outpatient (CLI) | payer MEDICARE | END 2021-07-29 10:16 | disposition home or self-care (01) | LOC: PET 10:15 | PROVIDERS: ATTEND Internal Medicine Hematology & Oncology | DX: C20 Malignant neoplasm of rectum (principal); C78.7 Secondary malignant neoplasm of liver and intrahepatic bile duct | CPT/HCPCS: 78815; A9552 ==

== ENCOUNTER 2021-10-21 09:41 | Day surgery (SDC) | payer MEDICARE ==
[2021-10-21] MEDS ORDERED: diphenhydrAMINE 25 MG CAP ONE ×2 (10:29→10:34)
[2021-10-21] MEDS ORDERED: Acetaminophen 500 MG TAB ONE (10:29)
[2021-10-21 15:57] VITALS: BP 106/52; TEMP 98
== END 2021-10-21 16:06 | disposition home or self-care (01) ==
LOC: ONC/OP 09:41
PROVIDERS: ATTEND Internal Medicine Hematology & Oncology
PROC: 30233N1 Transfusion of Nonautologous Red Blood Cells into Peripheral Vein, Percutaneous Approach (ICD-10-PCS; principal; 2021-10-21)
DX: D64.9 Anemia, unspecified (principal); Z91.013 Allergy to seafood; Z91.041 Radiographic dye allergy status; C20 Malignant neoplasm of rectum; C78.7 Secondary malignant neoplasm of liver and intrahepatic bile duct
CPT/HCPCS: 36415; 36430; 80053; 82248; 82378; 83615; 84100; 84550; 86850; 86900; 86901; J1642; P9016

== ENCOUNTER 2021-10-30 10:15 | Outpatient (CLI) | payer MEDICARE | END 2021-10-30 10:16 | disposition home or self-care (01) | LOC: PET 10:15 | PROVIDERS: ATTEND Internal Medicine Hematology & Oncology | DX: C20 Malignant neoplasm of rectum (principal); C78.7 Secondary malignant neoplasm of liver and intrahepatic bile duct | CPT/HCPCS: 78815; A9552 ==

== ENCOUNTER 2021-11-04 16:30 | Inpatient (IN) | payer MEDICARE ==
[2021-11-04 17:21] VITALS: BMI 23.6
[2021-11-04] MEDS ORDERED: Acetaminophen 325 MG TAB PO PRN (17:45)
[2021-11-04] MEDS ORDERED: HYDROcodone/Acetaminophen 5/325 mg Tablet PO PRN (17:45)
[2021-11-04] MEDS ORDERED: D5 1/2 NS w/40 mEq KCL 1,000 ML IV SCH ×2 (18:00→18:45)
[2021-11-04 18:05] LABS: #Eosinphils 0.2 thou/uL (0.0-0.7); #Lymphocytes 0.7 thou/uL (1.20-3.40); #Neutrophils 9.6 thou/uL (1.40-6.50); %Basophils 0.2 % (0.0-1.0); %Lymphocytes 5.7 % (21.0-51.0); %Monocytes 8.5 % (0.0-10.0); %Neutrophils 83.6 % (42.0-75.0); Hemoglobin 5.2 g/dL (14.0-18.0); Mean Corpuscular HGB CONC 31.3 g/dL (32.0-36.0); Mean Corpuscular Volume 95.9 fL (78.0-98.0); Mean Platelet Volume 7.2 fL (7.4-10.4); Platelet Count 202 thou/uL (130-400); RBC Distribution Width 19.5 % (11.5-14.5); Red Blood Cell (RBC) Count 1.74 mill/uL (4.70-6.10); White Blood Cell (WBC) Count 11.4 thou/uL (4.8-10.8)
[2021-11-04 18:17] LABS: ALT (SGPT) 19 U/L (8-55); AST (SGOT) 22 U/L (5-34); Albumin 2.9 g/dL (3.4-4.8); Alkaline Phosphatase 230 U/L (40-110); Anion Gap 13 mmol/L (10-20); BUN (Urea Nitrogen) 18 mg/dL (8.4-25.7); Bilirubin, Total 0.3 mg/dL (0.2-1.2); Calc. Creatinine Clearance 73 mL/min (70-130); Calcium 8.4 mg/dL (7.8-10.44); Carbon Dioxide 17 mmol/L (23-31); Chloride 112 mmol/L (98-107); Estimated GFR 83; Globulin 2.5 g/dL (2.4-3.5); Glucose 103 mg/dL (83-110); Potassium 4.1 mmol/L (3.5-5.1); Protein, Total 5.4 g/dL (5.8-8.1); Sodium 138 mmol/L (136-145)
[2021-11-04] MEDS: Pantoprazole 40 MG VIAL IVP SCH (21:34)
[2021-11-05 05:55] LABS: #Eosinphils 0.3 thou/uL (0.0-0.7); #Lymphocytes 0.7 thou/uL (1.20-3.40); #Monocytes 0.9 thou/uL (0.11-0.59); #Neutrophils 7.8 thou/uL (1.40-6.50); %Basophils 0.4 % (0.0-1.0); %Eosinophils 3.4 % (0.0-10.0); %Lymphocytes 7.5 % (21.0-51.0); %Monocytes 8.7 % (0.0-10.0); %Neutrophils 80.1 % (42.0-75.0); Hemoglobin 6.5 g/dL (14.0-18.0); Mean Corpuscular HGB CONC 32.7 g/dL (32.0-36.0); Mean Corpuscular Hemoglobin 30.3 pg (27.0-31.0); Mean Corpuscular Volume 92.6 fL (78.0-98.0); Mean Platelet Volume 7.2 fL (7.4-10.4); Platelet Count 188 thou/uL (130-400); RBC Distribution Width 17.3 % (11.5-14.5); Red Blood Cell (RBC) Count 2.16 mill/uL (4.70-6.10); White Blood Cell (WBC) Count 9.8 thou/uL (4.8-10.8)
[2021-11-05 06:22] LABS: ALT (SGPT) 16 U/L (8-55); AST (SGOT) 21 U/L (5-34); Albumin 2.5 g/dL (3.4-4.8); Alkaline Phosphatase 193 U/L (40-110); Anion Gap 11 mmol/L (10-20); BUN (Urea Nitrogen) 14 mg/dL (8.4-25.7); Bilirubin, Total 0.9 mg/dL (0.2-1.2); Calc. Creatinine Clearance 83 mL/min (70-130); Calcium 7.8 mg/dL (7.8-10.44); Carbon Dioxide 19 mmol/L (23-31); Chloride 112 mmol/L (98-107); Estimated GFR 90; Globulin 2.2 g/dL (2.4-3.5); Glucose 104 mg/dL (83-110); Potassium 4.6 mmol/L (3.5-5.1); Protein, Total 4.7 g/dL (5.8-8.1); Sodium 137 mmol/L (136-145)
[2021-11-05] MEDS ORDERED: Ketamine 50 MG/ML (10ML VIAL) ONE (11:18)
[2021-11-05] MEDS ORDERED: PROPOFOL 200 MG/20 ML VIAL ONE (11:27)
[2021-11-05] MEDS ORDERED: Ondansetron HCl/PF 4 MG/2 ML Vial IVP PRN (11:53)
[2021-11-05] MEDS ORDERED: Promethazine HCl 25 MG/ML VIAL IVPB PRN (11:53)
[2021-11-05] MEDS ORDERED: Promethazine HCl 25 MG/ML VIAL IM PRN (11:53)
[2021-11-05] MEDS ORDERED: GoLYTELY 4,000 ml Bottle PO SCH (12:00)
[2021-11-05] MEDS: Pantoprazole 40 MG VIAL IVP SCH ×2 (13:22→21:09)
[2021-11-05] MEDS: Digoxin 0.125 MG TAB PO SCH (13:24)
[2021-11-05] MEDS: Metoprolol Tartrate 25 MG TAB PO SCH ×2 (13:25→13:33)
[2021-11-05] MEDS: Tamsulosin HCl 0.4 MG CAP PO SCH (13:25)
[2021-11-05] MEDS ORDERED: Magnevist 469MG/ML 20 ML VIAL ONE (14:14)
[2021-11-05 17:14] LABS: Hemoglobin 7.9 g/dL (14.0-18.0); Platelet Count 199 thou/uL (130-400)
[2021-11-06 05:48] LABS: Hemoglobin 7.8 g/dL (14.0-18.0); Mean Corpuscular HGB CONC 32.5 g/dL (32.0-36.0); Mean Corpuscular Hemoglobin 30.3 pg (27.0-31.0); Mean Corpuscular Volume 93.1 fL (78.0-98.0); Mean Platelet Volume 7.4 fL (7.4-10.4); Platelet Count 190 thou/uL (130-400); RBC Distribution Width 17.3 % (11.5-14.5); Red Blood Cell (RBC) Count 2.58 mill/uL (4.70-6.10); White Blood Cell (WBC) Count 11.7 thou/uL (4.8-10.8)
[2021-11-06 06:15] LABS: Anion Gap 10 mmol/L (10-20); BUN (Urea Nitrogen) 7 mg/dL (8.4-25.7); Calc. Creatinine Clearance 87 mL/min (70-130); Calcium 8.3 mg/dL (7.8-10.44); Carbon Dioxide 20 mmol/L (23-31); Chloride 110 mmol/L (98-107); Estimated GFR 92; Glucose 103 mg/dL (83-110); Potassium 4.7 mmol/L (3.5-5.1); Sodium 135 mmol/L (136-145)
[2021-11-06] MEDS ORDERED: Lidocaine 1% MPF 2 ML VIAL ONE (09:12)
[2021-11-06] MEDS ORDERED: PROPOFOL 200 MG/20 ML VIAL ONE (09:12)
[2021-11-06] MEDS: Metoprolol Tartrate 25 MG TAB PO SCH (11:18)
[2021-11-06] MEDS: Pantoprazole 40 MG VIAL IVP SCH ×2 (11:21→20:32)
[2021-11-06] MEDS: D5 1/2 NS w/40 mEq KCL 1,000 ML IV SCH ×4 (11:22→20:45)
[2021-11-06] MEDS: Digoxin 0.125 MG TAB PO SCH (11:22)
[2021-11-06] MEDS: Tamsulosin HCl 0.4 MG CAP PO SCH (11:22)
[2021-11-07 06:00] LABS: Iron 21 ug/dL (65-175); Iron Binding Capacity, Total 319 mcg/dL (261-462); Transferrin, Serum 255 mg/dL (163-344)
[2021-11-07] MEDS: D5 1/2 NS w/40 mEq KCL 1,000 ML IV SCH (07:07)
[2021-11-07] MEDS ORDERED: Docusate 100 MG CAP PO PRN ×2 (08:37→14:34)
[2021-11-07 08:46] VITALS: BP 122/64; TEMP 97.7
[2021-11-07] MEDS: Pantoprazole 40 MG VIAL IVP SCH (09:15)
[2021-11-07] MEDS: Metoprolol Tartrate 25 MG TAB PO SCH (09:15)
[2021-11-07] MEDS: Tamsulosin HCl 0.4 MG CAP PO SCH (09:22)
[2021-11-07] MEDS: Digoxin 0.125 MG TAB PO SCH (09:22)
[2021-11-07 11:56] LABS: Hemoglobin 8.6 g/dL (14.0-18.0); Platelet Count 205 thou/uL (130-400)
[2021-11-08] MEDS ORDERED: Ferrous Sulfate 325 MG TAB PO SCH ×2 (08:00)
== END 2021-11-07 13:04 | disposition home or self-care (01) | DRG 394 ==
LOC: INTOOBSV 16:51 → MSONC 16:51 → OBSVTOIN 11-05 15:24
PROVIDERS: ADMIT Internal Medicine; ATTEND Internal Medicine
PROC: 30233N1 Transfusion of Nonautologous Red Blood Cells into Peripheral Vein, Percutaneous Approach (ICD-10-PCS; 2021-11-04)
PROC: 0DJ08ZZ Inspection of Upper Intestinal Tract, Via Natural or Artificial Opening Endoscopic (ICD-10-PCS; 2021-11-05)
PROC: 30233K1 Transfusion of Nonautologous Frozen Plasma into Peripheral Vein, Percutaneous Approach (ICD-10-PCS; 2021-11-05)
PROC: 0DJD8ZZ Inspection of Lower Intestinal Tract, Via Natural or Artificial Opening Endoscopic (ICD-10-PCS; principal; 2021-11-06)
DX: K94.01 Colostomy hemorrhage (principal); C19 Malignant neoplasm of rectosigmoid junction; D62 Acute posthemorrhagic anemia; C78.7 Secondary malignant neoplasm of liver and intrahepatic bile duct; Z20.822 Contact with and (suspected) exposure to COVID-19; Y83.3 Surgical operation with formation of external stoma as the cause of abnormal reaction of the patient, or of later complication, without mention of misadventure at the time of the procedure; K94.09 Other complications of colostomy; I48.0 Paroxysmal atrial fibrillation; K57.30 Diverticulosis of large intestine without perforation or abscess without bleeding; K44.9 Diaphragmatic hernia without obstruction or gangrene; D64.81 Anemia due to antineoplastic chemotherapy; T45.1X5A Adverse effect of antineoplastic and immunosuppressive drugs, initial encounter; I11.0 Hypertensive heart disease with heart failure; N40.1 Benign prostatic hyperplasia with lower urinary tract symptoms; R33.8 Other retention of urine; I50.9 Heart failure, unspecified; Z90.49 Acquired absence of other specified parts of digestive tract; Z91.041 Radiographic dye allergy status; Z85.819 Personal history of malignant neoplasm of unspecified site of lip, oral cavity, and pharynx; Z91.013 Allergy to seafood; Z79.899 Other long term (current) drug therapy; Z79.01 Long term (current) use of anticoagulants; Z98.890 Other specified postprocedural states; Z86.711 Personal history of pulmonary embolism
CPT/HCPCS: 36415; 36430; 70553; 80048; 80053; 82248; 82378; 82728; 83540; 83550; 83615; 84100; 84466; 84550; 85025; 85027; 86850; 86900; 86901; 96365; 96366; 96375; A9579; C9113; G0378; J1642; J2704; J3480; J7042; P9016; P9059; U0003; U0005

== ENCOUNTER → 2022-02-03 | Outpatient (CLI) | payer MEDICARE | LOC: PET 13:15 | PROVIDERS: ATTEND Internal Medicine Hematology & Oncology | DX: C20 Malignant neoplasm of rectum (principal); C78.7 Secondary malignant neoplasm of liver and intrahepatic bile duct | CPT/HCPCS: 78815; A9552 ==

== ENCOUNTER 2022-05-19 08:51 | Inpatient (IN) | payer MEDICARE ==
[2022-05-19] MEDS ORDERED: Tranexamic Acid 1,000 MG/10 ML VIAL ONE (09:12)
[2022-05-19] MEDS ORDERED: Iopamidol-370 76% 500 ML MDV (1 ML CHARGE) ONE (09:27)
[2022-05-19] MEDS ORDERED: methylPREDNISolone Sod Succ/PF 125 MG/2 ML VIAL ONE (09:28)
[2022-05-19] MEDS ORDERED: Famotidine/PF 20 mg/2ml Vial ONE (09:28)
[2022-05-19] MEDS ORDERED: diphenhydrAMINE 50 MG/ML VIAL ONE (09:30)
[2022-05-19 09:33] LABS: ALT (SGPT) 36 U/L (8-55); AST (SGOT) 53 U/L (5-34); Albumin 3.1 g/dL (3.4-4.8); Alkaline Phosphatase 807 U/L (40-110); Anion Gap 13 mmol/L (10-20); BUN (Urea Nitrogen) 29 mg/dL (8.4-25.7); Bilirubin, Total 0.6 mg/dL (0.2-1.2); Calc. Creatinine Clearance 0 mL/min (70-130); Calcium 8.2 mg/dL (7.8-10.44); Carbon Dioxide 10 mmol/L (23-31); Chloride 115 mmol/L (98-107); Estimated GFR 56; Globulin 2.7 g/dL (2.4-3.5); Glucose 105 mg/dL (83-110); Potassium 5.5 mmol/L (3.5-5.1); Protein, Total 5.8 g/dL (5.8-8.1); Sodium 132 mmol/L (136-145)
[2022-05-19] MEDS ORDERED: methylPREDNISolone Sod Succ 40 MG VIAL ONE (09:35)
[2022-05-19 09:36] LABS: Hemoglobin 4.8 g/dL (14.0-18.0); Mean Corpuscular HGB CONC 34.4 g/dL (32.0-36.0); Mean Corpuscular Hemoglobin 34.5 pg (27.0-31.0); Mean Platelet Volume 7.6 fL (7.4-10.4); Platelet Count 152 10x3/uL (130-400); RBC Distribution Width 19.3 % (11.5-14.5); White Blood Cell (WBC) Count 3.2 10x3/uL (4.8-10.8)
[2022-05-19 09:53] LABS: INR-International Normal Ratio 1.2; Prothrombin Time 15.6 sec (12.0-14.7)
[2022-05-19] MEDS ORDERED: Lidocaine 1% w/Epinephrine 1:100K 20 ML VIAL ONE (09:55)
[2022-05-19 10:01] LABS: Band 11 % (5-11); Eosinophils 5 % (0-10); Hypochromia SLIGHT = 6-15 cells (100X) (0-5/hpf); Lymphocytes 25 % (21-51); MDiff Complete? YES; Monocytes 11 % (0-10); Neutrophil 48 % (42-75); Platelet Morphology Comment Appears Adequate; Polychromasia MODERATE = 3-4 cells (100X) (0-2/hpf)
[2022-05-19] MEDS ORDERED: Dextrose 50% Abboject 50 ML SYRINGE SLOW IVP SCH (10:45)
[2022-05-19] MEDS ORDERED: Insulin Regular 300 UNITS/3 ML VIAL IVP SCH (10:45)
[2022-05-19] MEDS ORDERED: Dextrose 50% Abboject 50 ML SYRINGE ONE (12:02)
[2022-05-19] MEDS ORDERED: Insulin Regular 300 UNITS/3 ML VIAL ONE (12:02)
[2022-05-19] MEDS ORDERED: Acetaminophen 325 MG TAB PO PRN (15:34)
[2022-05-19] MEDS ORDERED: Ondansetron PF 4 MG/2 ML Vial IVP PRN (15:34)
[2022-05-19 16:30] VITALS: BMI 22.6
[2022-05-19 18:52] LABS: Hemoglobin 7.5 g/dL (14.0-18.0)
[2022-05-19] MEDS ORDERED: Sodium Chloride 0.9% 500 ML IVPB SCH (22:15)
[2022-05-20 08:10] LABS: Hemoglobin 8.9 g/dL (14.0-18.0); Mean Corpuscular Hemoglobin 31.7 pg (27.0-31.0); Mean Corpuscular Volume 90.6 fl (78.0-98.0); Mean Platelet Volume 7.8 fL (7.4-10.4); Platelet Count 110 10x3/uL (130-400); RBC Distribution Width 17.4 % (11.5-14.5); Red Blood Cell (RBC) Count 2.81 mill/uL (4.70-6.10); White Blood Cell (WBC) Count 2.5 10x3/uL (4.8-10.8)
[2022-05-20 08:11] LABS: #Lymphocytes 0.3 thou/uL (1.20-3.40); #Monocytes 0.4 thou/uL (0.11-0.59); #Neutrophils 1.8 thou/uL (1.40-6.50); %Eosinophils 0.2 % (0.0-10.0); %Lymphocytes 10.9 % (21.0-51.0); %Monocytes 14.7 % (0.0-10.0); %Neutrophils 74.2 % (42.0-75.0)
[2022-05-20 08:28] LABS: Anion Gap 12 mmol/L (10-20); BUN (Urea Nitrogen) 34 mg/dL (8.4-25.7); Calc. Creatinine Clearance 46 mL/min (70-130); Calcium 7.9 mg/dL (7.8-10.44); Carbon Dioxide 13 mmol/L (23-31); Chloride 116 mmol/L (98-107); Estimated GFR 52; Glucose 119 mg/dL (83-110); Potassium 5.7 mmol/L (3.5-5.1); Sodium 135 mmol/L (136-145)
[2022-05-20 08:49] LABS: Magnesium 2.2 mg/dL (1.6-2.6)
[2022-05-20] MEDS ORDERED: Sodium Bicarbonate Tab 325 MG TAB PO SCH ×2 (09:45→21:00)
[2022-05-20] MEDS ORDERED: Sodium Bicarbonate 150 MEQ in Dextrose 5% in Water 1,000 ML IV SCH (09:45)
[2022-05-20] MEDS ORDERED: LOKELMA 10 GM PACKET PO SCH (09:45)
[2022-05-20] MEDS: Digoxin 0.125 MG TAB PO SCH (09:49)
[2022-05-20] MEDS: Multivit, Therapeutic 1 TAB PO SCH (09:53)
[2022-05-20] MEDS: Tamsulosin HCl 0.4 MG CAP PO SCH (09:53)
[2022-05-20 15:07] LABS: Anion Gap 11 mmol/L (10-20); BUN (Urea Nitrogen) 35 mg/dL (8.4-25.7); Calc. Creatinine Clearance 44 mL/min (70-130); Calcium 8.5 mg/dL (7.8-10.44); Carbon Dioxide 13 mmol/L (23-31); Chloride 115 mmol/L (98-107); Estimated GFR 50; Glucose 134 mg/dL (83-110); Sodium 134 mmol/L (136-145)
[2022-05-20] MEDS: Sodium Chloride 0.45% 1,000 ML IV SCH (18:25)
[2022-05-21] MEDS: Sodium Chloride 0.45% 1,000 ML IV SCH ×3 (04:03→23:57)
[2022-05-21 06:07] LABS: Albumin 2.7 g/dL (3.4-4.8); Anion Gap 9 mmol/L (10-20); BUN (Urea Nitrogen) 43 mg/dL (8.4-25.7); BUN/Creatinine Ratio 28.86; Calc. Creatinine Clearance 42 mL/min (70-130); Carbon Dioxide 16 mmol/L (23-31); Chloride 113 mmol/L (98-107); Estimated GFR 48; Glucose 93 mg/dL (83-110); Phosphorus 3.2 mg/dL (2.3-4.7); Potassium 4.9 mmol/L (3.5-5.1); Sodium 133 mmol/L (136-145)
[2022-05-21 06:16] LABS: Band 14 % (5-11); Hemoglobin 8.7 g/dL (14.0-18.0); Hypochromia SLIGHT = 6-15 cells (100X) (0-5/hpf); Lymphocytes 24 % (21-51); MDiff Complete? YES; Mean Corpuscular HGB CONC 34.9 g/dL (32.0-36.0); Mean Corpuscular Hemoglobin 31.9 pg (27.0-31.0); Mean Corpuscular Volume 91.4 fl (78.0-98.0); Monocytes 6 % (0-10); Neutrophil 50 % (42-75); Platelet Count 124 10x3/uL (130-400); Platelet Morphology Comment Appears Decreased; RBC Distribution Width 18.8 % (11.5-14.5); Reactive Lymphocytes 6 % (0-10); Red Blood Cell (RBC) Count 2.73 mill/uL (4.70-6.10); White Blood Cell (WBC) Count 2.6 10x3/uL (4.8-10.8)
[2022-05-21] MEDS: Metoprolol Tartrate 25 MG TAB PO SCH (10:20)
[2022-05-21] MEDS: Digoxin 0.125 MG TAB PO SCH (10:25)
[2022-05-21] MEDS: Tamsulosin HCl 0.4 MG CAP PO SCH (10:26)
[2022-05-21] MEDS: Multivit, Therapeutic 1 TAB PO SCH (10:26)
[2022-05-21] MEDS ORDERED: Gabapentin 100 MG CAP PO SCH (14:30)
[2022-05-21] MEDS ORDERED: Methyl Salicylate/Menthol 85 GM TUBE TOP PRN (14:35)
[2022-05-22 04:32] LABS: Hemoglobin 8.5 g/dL (14.0-18.0); Mean Corpuscular HGB CONC 34.3 g/dL (32.0-36.0); Mean Corpuscular Hemoglobin 32.2 pg (27.0-31.0); Mean Corpuscular Volume 93.9 fl (78.0-98.0); RBC Distribution Width 20.2 % (11.5-14.5); Red Blood Cell (RBC) Count 2.63 mill/uL (4.70-6.10); White Blood Cell (WBC) Count 2.4 10x3/uL (4.8-10.8)
[2022-05-22 04:52] LABS: ALT (SGPT) 50 U/L (8-55); AST (SGOT) 72 U/L (5-34); Albumin 2.7 g/dL (3.4-4.8); Alkaline Phosphatase 700 U/L (40-110); Anion Gap 9 mmol/L (10-20); BUN (Urea Nitrogen) 38 mg/dL (8.4-25.7); Calc. Creatinine Clearance 53 mL/min (70-130); Carbon Dioxide 15 mmol/L (23-31); Chloride 112 mmol/L (98-107); Estimated GFR 63; Globulin 2.5 g/dL (2.4-3.5); Glucose 90 mg/dL (83-110); Potassium 4.8 mmol/L (3.5-5.1); Protein, Total 5.2 g/dL (5.8-8.1); Sodium 131 mmol/L (136-145)
[2022-05-22 05:23] LABS: Band 10 % (5-11); Lymphocytes 18 % (21-51); MDiff Complete? YES; Mean Platelet Volume 7.9 fL (7.4-10.4); Monocytes 20 % (0-10); Neutrophil 52 % (42-75); Platelet Count 81 10x3/uL (130-400); Platelet Morphology Comment Appears Decreased
[2022-05-22] MEDS: Tamsulosin HCl 0.4 MG CAP PO SCH (08:35)
[2022-05-22] MEDS: Digoxin 0.125 MG TAB PO SCH (08:35)
[2022-05-22] MEDS: Gabapentin 100 MG CAP PO SCH (08:35)
[2022-05-22] MEDS: Multivit, Therapeutic 1 TAB PO SCH (08:36)
[2022-05-22] MEDS: Metoprolol Tartrate 25 MG TAB PO SCH (08:37)
[2022-05-22] MEDS: Sodium Chloride 0.45% 1,000 ML IV SCH ×2 (08:39→18:49)
[2022-05-23] MEDS: Sodium Chloride 0.45% 1,000 ML IV SCH (06:26)
[2022-05-23] MEDS: Digoxin 0.125 MG TAB PO SCH (10:26)
[2022-05-23] MEDS: Gabapentin 100 MG CAP PO SCH (10:26)
[2022-05-23] MEDS: Tamsulosin HCl 0.4 MG CAP PO SCH (10:27)
[2022-05-23] MEDS: Multivit, Therapeutic 1 TAB PO SCH (10:28)
[2022-05-23] MEDS: Metoprolol Tartrate 25 MG TAB PO SCH (10:30)
[2022-05-23 11:26] VITALS: TEMP 98.2
[2022-05-23 13:02] VITALS: BP 113/56
== END 2022-05-23 13:34 | disposition home health service (06) | DRG 394 ==
LOC: ERS 08:51 → ERHOLD 10:13 → CCU 15:46 → IMCU/EMU 05-21 22:02 → 2NO 05-22 20:12
PROVIDERS: ADMIT Internal Medicine; ATTEND Internal Medicine
PROC: 30233N1 Transfusion of Nonautologous Red Blood Cells into Peripheral Vein, Percutaneous Approach (ICD-10-PCS; principal; 2022-05-19)
DX: K94.01 Colostomy hemorrhage (principal); C19 Malignant neoplasm of rectosigmoid junction; D62 Acute posthemorrhagic anemia; N17.9 Acute kidney failure, unspecified; E87.1 Hypo-osmolality and hyponatremia; I47.20 Ventricular tachycardia, unspecified; I48.20 Chronic atrial fibrillation, unspecified; E87.20 Acidosis, unspecified; Y83.3 Surgical operation with formation of external stoma as the cause of abnormal reaction of the patient, or of later complication, without mention of misadventure at the time of the procedure; E87.5 Hyperkalemia; N18.2 Chronic kidney disease, stage 2 (mild); J44.9 Chronic obstructive pulmonary disease, unspecified; E87.8 Other disorders of electrolyte and fluid balance, not elsewhere classified; Z91.041 Radiographic dye allergy status; Z91.013 Allergy to seafood; Z79.899 Other long term (current) drug therapy; Z79.01 Long term (current) use of anticoagulants; Z85.819 Personal history of malignant neoplasm of unspecified site of lip, oral cavity, and pharynx; Z86.711 Personal history of pulmonary embolism; Z98.890 Other specified postprocedural states; Z80.0 Family history of malignant neoplasm of digestive organs; Z80.8 Family history of malignant neoplasm of other organs or systems
CPT/HCPCS: 36415; 36416; 36430; 74176; 74177; 80048; 80053; 80069; 83735; 83880; 85025; 85610; 85730; 86850; 86900; 86901; 94760; 96374; 96375; J1200; J1642; J1815; J2920; J2930; J7030; J7070; J7999; P9016; Q9967; S0028

== ENCOUNTER 2022-07-01 14:03 | Inpatient (IN) | payer MEDICARE ==
[2022-07-01] MEDS ORDERED: HYDROcodone/Acetaminophen 10/325 mg Tablet ONE (15:26)
[2022-07-01 15:56] LABS: #Lymphocytes 0.3 thou/uL (1.20-3.40); #Monocytes 0.1 thou/uL (0.11-0.59); #Neutrophils 4.7 thou/uL (1.40-6.50); %Eosinophils 0.6 % (0.0-10.0); %Lymphocytes 5.7 % (21.0-51.0); %Monocytes 2.3 % (0.0-10.0); %Neutrophils 91.4 % (42.0-75.0); Hemoglobin 6.4 g/dL (14.0-18.0); Mean Corpuscular HGB CONC 34.2 g/dL (32.0-36.0); Mean Corpuscular Hemoglobin 35.8 pg (27.0-31.0); Mean Platelet Volume 8.1 fL (7.4-10.4); Platelet Count 129 10x3/uL (130-400); RBC Distribution Width 21.7 % (11.5-14.5); White Blood Cell (WBC) Count 5.2 10x3/uL (4.8-10.8)
[2022-07-01 16:13] LABS: ALT (SGPT) 24 U/L (8-55); AST (SGOT) 66 U/L (5-34); Alkaline Phosphatase 731 U/L (40-110); Anion Gap 16 mmol/L (10-20); BUN (Urea Nitrogen) 48 mg/dL (8.4-25.7); Bilirubin, Total 1.5 mg/dL (0.2-1.2); Calc. Creatinine Clearance 0 mL/min (70-130); Calcium 8.6 mg/dL (7.8-10.44); Carbon Dioxide 14 mmol/L (23-31); Chloride 106 mmol/L (98-107); Estimated GFR 47; Globulin 3.4 g/dL (2.4-3.5); Glucose 134 mg/dL (83-110); Potassium 5.4 mmol/L (3.5-5.1); Protein, Total 6.4 g/dL (5.8-8.1); Sodium 131 mmol/L (136-145)
[2022-07-01 16:51] LABS: #Lymphocytes 0.2 thou/uL (1.20-3.40); #Monocytes 0.5 thou/uL (0.11-0.59); #Neutrophils 6.9 thou/uL (1.40-6.50); %Basophils 0.1 % (0.0-1.0); %Eosinophils 0.3 % (0.0-10.0); %Lymphocytes 2.4 % (21.0-51.0); %Monocytes 6.4 % (0.0-10.0); %Neutrophils 90.8 % (42.0-75.0); Hemoglobin 6.2 g/dL (14.0-18.0); Mean Corpuscular HGB CONC 33.1 g/dL (32.0-36.0); Mean Corpuscular Hemoglobin 34.9 pg (27.0-31.0); Mean Platelet Volume 8.1 fL (7.4-10.4); Platelet Count 125 10x3/uL (130-400); RBC Distribution Width 22.2 % (11.5-14.5); Red Blood Cell (RBC) Count 1.78 mill/uL (4.70-6.10); White Blood Cell (WBC) Count 7.6 10x3/uL (4.8-10.8)
[2022-07-01] MEDS ORDERED: diphenhydrAMINE 25 MG CAP ONE (17:05)
[2022-07-01] MEDS ORDERED: Acetaminophen 500 MG TAB ONE (17:05)
[2022-07-01 17:09] LABS: ALT (SGPT) 24 U/L (8-55); AST (SGOT) 66 U/L (5-34); Alkaline Phosphatase 719 U/L (40-110); Anion Gap 18 mmol/L (10-20); BUN (Urea Nitrogen) 48 mg/dL (8.4-25.7); Bilirubin, Total 1.6 mg/dL (0.2-1.2); Calc. Creatinine Clearance 0 mL/min (70-130); Calcium 8.6 mg/dL (7.8-10.44); Carbon Dioxide 13 mmol/L (23-31); Chloride 107 mmol/L (98-107); Estimated GFR 44; Globulin 3.2 g/dL (2.4-3.5); Glucose 134 mg/dL (83-110); Potassium 5.6 mmol/L (3.5-5.1); Protein, Total 6.2 g/dL (5.8-8.1); Sodium 132 mmol/L (136-145)
[2022-07-01 17:12] LABS: Anisocytosis MODERATE=16-30 cells (100X) (0-5/hpf); Blister Cells SLIGHT = 2-5 cells (100X) (0-1/hpf); MDiff Complete? YES; Macrocytosis SLIGHT = 6-15 cells (100X) (0-5/hpf); Platelet Morphology Comment Appears Decreased; Poikilocytosis SLIGHT = 6-15 cells (100X) (0-5/hpf); Polychromasia MODERATE = 3-4 cells (100X) (0-2/hpf); Schistocytes SLIGHT = 2-5 cells (100X) (0-1/hpf); Spherocytes SLIGHT = 1-5 cells (100X) (None Seen); Tear Drops SLIGHT = 2-5 cells (100X) (0-1/hpf)
[2022-07-01 17:35] LABS: CKMB 2.1 ng/mL (0-6.6)
[2022-07-01 17:36] LABS: Digoxin 1.39 ng/mL (0.8-2.0)
[2022-07-01] MEDS ORDERED: Ondansetron ODT 4 MG TAB SL PRN (20:00)
[2022-07-01] MEDS ORDERED: Ondansetron PF 4 MG/2 ML Vial IVP PRN ×2 (20:00→20:46)
[2022-07-01] MEDS ORDERED: Acetaminophen 325 MG TAB PO PRN (20:00)
[2022-07-01 20:38] LABS: Lactic Acid 2.4 mmol/L (0.5-2.2)
[2022-07-01] MEDS ORDERED: Ondansetron ODT 4 MG TAB PO PRN (20:46)
[2022-07-01] MEDS ORDERED: Acetaminophen 650 MG Suppository PR PRN (20:46)
[2022-07-01] MEDS ORDERED: Senokot S 8.6-50 MG TAB PO PRN (20:46)
[2022-07-01] MEDS ORDERED: Guaifenesin DM 100-10/5 ML UDCUP PO PRN (20:46)
[2022-07-01 20:56] LABS: Critical Call Chem Troponin I RESULT DECREASING; Troponin I 0.215 ng/mL (< 0.028)
[2022-07-01] MEDS ORDERED: Sacubitril 24MG/Valsartan 26 MG TAB PO SCH (21:00)
[2022-07-01 22:57] LABS: Hemoglobin 6.3 g/dL (14.0-18.0)
[2022-07-01 23:18] VITALS: BMI 24.7
[2022-07-02] MEDS: HYDROcodone/Acetaminophen 5/325 mg Tablet PO PRN ×3 (00:41→21:13)
[2022-07-02 01:48] LABS: Troponin I 0.191 ng/mL (< 0.028)
[2022-07-02 04:21] LABS: Hemoglobin 7.1 g/dL (14.0-18.0); Mean Corpuscular HGB CONC 34.3 g/dL (32.0-36.0); Mean Corpuscular Hemoglobin 33.7 pg (27.0-31.0); Mean Corpuscular Volume 98.1 fl (78.0-98.0); RBC Distribution Width 19.6 % (11.5-14.5); Red Blood Cell (RBC) Count 2.11 mill/uL (4.70-6.10); White Blood Cell (WBC) Count 5.7 10x3/uL (4.8-10.8)
[2022-07-02 04:39] LABS: Anion Gap 15 mmol/L (10-20); BUN (Urea Nitrogen) 53 mg/dL (8.4-25.7); Calc. Creatinine Clearance 43 mL/min (70-130); Calcium 8.1 mg/dL (7.8-10.44); Carbon Dioxide 14 mmol/L (23-31); Chloride 109 mmol/L (98-107); Estimated GFR 42; Glucose 149 mg/dL (83-110); Sodium 132 mmol/L (136-145)
[2022-07-02 04:42] LABS: Bacteria/HPF None Seen HPF (None Seen); Bilirubin Negative (Negative); Blood, Urine Negative (Negative); Clarity Clear (Clear); Glucose, Urine (Dipstick) Normal (Negative); Ketone, Urine Negative (Negative); Leukocyte Negative Leu/uL (Negative); Nitrite Negative (Negative); Protein, Urine (Dipstick) 20 mg/dL (Neg-Trace); RBC/HPF None Seen HPF (0-3); Specific Gravity, Urine 1.019 (1.002-1.036); Squamous Epithelial None Seen HPF (0-3); Urobilinogen Normal mg/dL (Less than 2); WBC/HPF 0-3 HPF (0-3)
[2022-07-02 04:45] LABS: Potassium 6.2 mmol/L (3.5-5.1)
[2022-07-02 05:09] LABS: #Lymphocytes 0.1 thou/uL (1.20-3.40); #Monocytes 0.3 thou/uL (0.11-0.59); #Neutrophils 5.3 thou/uL (1.40-6.50); %Eosinophils 0.1 % (0.0-10.0); %Lymphocytes 1.4 % (21.0-51.0); %Neutrophils 93.5 % (42.0-75.0); Mean Platelet Volume 8.2 fL (7.4-10.4); Platelet Count 84 10x3/uL (130-400)
[2022-07-02 05:10] LABS: Anisocytosis SLIGHT = 6-15 cells (100X) (0-5/hpf); MDiff Complete? YES; Macrocytosis SLIGHT = 6-15 cells (100X) (0-5/hpf); Platelet Morphology Comment Appears Decreased
[2022-07-02] MEDS ORDERED: Dextrose 50% Abboject 50 ML SYRINGE SLOW IVP ONE (05:25)
[2022-07-02] MEDS ORDERED: Sodium Bicarb 50 MEQ/50 ML VIAL IVP SCH (06:00)
[2022-07-02] MEDS ORDERED: Insulin Regular 300 UNITS/3 ML VIAL IVP SCH (06:00)
[2022-07-02] MEDS ORDERED: LOKELMA 10 GM PACKET PO SCH (07:00)
[2022-07-02 08:36] LABS: Anion Gap 17 mmol/L (10-20); BUN (Urea Nitrogen) 55 mg/dL (8.4-25.7); Calc. Creatinine Clearance 42 mL/min (70-130); Calcium 8.4 mg/dL (7.8-10.44); Carbon Dioxide 16 mmol/L (23-31); Chloride 109 mmol/L (98-107); Estimated GFR 41; Glucose 122 mg/dL (83-110); Potassium 5.7 mmol/L (3.5-5.1); Sodium 136 mmol/L (136-145)
[2022-07-02] MEDS: Sodium Bicarbonate 150 MEQ in Dextrose 5% in Water 1,000 ML IV SCH ×2 (08:46→21:29)
[2022-07-02] MEDS: Tamsulosin HCl 0.4 MG CAP PO SCH (08:47)
[2022-07-02] MEDS: Pantoprazole 40 MG VIAL IVP SCH (08:47)
[2022-07-02] MEDS: Digoxin 0.125 MG TAB PO SCH (08:47)
[2022-07-02] MEDS: Multivitamin W/ Minerals 1 TAB PO SCH (08:47)
[2022-07-02] MEDS: Metoprolol Tartrate 25 MG TAB PO SCH (08:48)
[2022-07-02 12:31] LABS: Hemoglobin 7.5 g/dL (14.0-18.0)
[2022-07-02 18:53] LABS: Anion Gap 16 mmol/L (10-20); BUN (Urea Nitrogen) 54 mg/dL (8.4-25.7); Calc. Creatinine Clearance 42 mL/min (70-130); Calcium 8.1 mg/dL (7.8-10.44); Carbon Dioxide 17 mmol/L (23-31); Chloride 106 mmol/L (98-107); Estimated GFR 41; Glucose 160 mg/dL (83-110); Potassium 5.4 mmol/L (3.5-5.1); Sodium 134 mmol/L (136-145)
[2022-07-02] MEDS: Albumin 25% 25 GM/100 ML BOT IVPB SCH (19:44)
[2022-07-02] MEDS: guaiFENesin ER 600 MG TAB PO SCH (21:11)
[2022-07-02] MEDS: Benzonatate 100 MG CAP PO SCH (21:11)
[2022-07-02 23:08] LABS: Creatinine, Urine 136.39 mg/dL (63-166); Sodium, Urine Less than 20 mmol/L (Not Available)
[2022-07-03] MEDS: Albumin 25% 25 GM/100 ML BOT IVPB SCH ×4 (00:37→17:51)
[2022-07-03 04:04] LABS: #Lymphocytes 0.1 thou/uL (1.20-3.40); #Monocytes 0.3 thou/uL (0.11-0.59); %Basophils 0.8 % (0.0-1.0); %Lymphocytes 3.1 % (21.0-51.0); %Monocytes 6.5 % (0.0-10.0); %Neutrophils 89.6 % (42.0-75.0); Hemoglobin 6.3 g/dL (14.0-18.0); Mean Corpuscular HGB CONC 33.1 g/dL (32.0-36.0); Mean Corpuscular Hemoglobin 32.3 pg (27.0-31.0); Mean Corpuscular Volume 97.6 fl (78.0-98.0); Mean Platelet Volume 8.3 fL (7.4-10.4); Platelet Count 94 10x3/uL (130-400); RBC Distribution Width 19.6 % (11.5-14.5); Red Blood Cell (RBC) Count 1.95 mill/uL (4.70-6.10); White Blood Cell (WBC) Count 4.4 10x3/uL (4.8-10.8)
[2022-07-03 04:21] LABS: Anion Gap 15 mmol/L (10-20); BUN (Urea Nitrogen) 53 mg/dL (8.4-25.7); Calc. Creatinine Clearance 46 mL/min (70-130); Calcium 8.1 mg/dL (7.8-10.44); Carbon Dioxide 21 mmol/L (23-31); Chloride 105 mmol/L (98-107); Estimated GFR 46; Glucose 141 mg/dL (83-110); Potassium 4.9 mmol/L (3.5-5.1); Sodium 136 mmol/L (136-145)
[2022-07-03] MEDS: HYDROcodone/Acetaminophen 5/325 mg Tablet PO PRN ×2 (06:38→17:26)
[2022-07-03] MEDS: Sodium Bicarbonate 150 MEQ in Dextrose 5% in Water 1,000 ML IV SCH (10:17)
[2022-07-03] MEDS: Metoprolol Tartrate 25 MG TAB PO SCH (10:18)
[2022-07-03] MEDS: Tamsulosin HCl 0.4 MG CAP PO SCH (10:18)
[2022-07-03] MEDS: Digoxin 0.125 MG TAB PO SCH (10:19)
[2022-07-03] MEDS: Multivitamin W/ Minerals 1 TAB PO SCH (10:19)
[2022-07-03] MEDS: Benzonatate 100 MG CAP PO SCH ×3 (10:20→21:19)
[2022-07-03] MEDS: guaiFENesin ER 600 MG TAB PO SCH ×2 (10:20→21:19)
[2022-07-03] MEDS: Pantoprazole 40 MG VIAL IVP SCH (10:21)
[2022-07-03] MEDS ORDERED: Morphine 2 MG/ML VIAL SLOW IVP PRN (12:15)
[2022-07-03] MEDS ORDERED: Megestrol Acetate 400 MG/10 ML UDCUP PO SCH (12:30)
[2022-07-03] MEDS ORDERED: Senokot S 8.6-50 MG TAB PO PRN (12:30)
[2022-07-03] MEDS: Acetaminophen 325 MG TAB PO PRN (12:33)
[2022-07-03] MEDS: diphenhydrAMINE 25 MG CAP PO PRN (12:36)
[2022-07-03] MEDS ORDERED: Megestrol Acetate 800 MG/20 ML UDCUP PO SCH (12:45)
[2022-07-03 18:22] LABS: Hemoglobin 7.1 g/dL (14.0-18.0); Platelet Count 78 10x3/uL (130-400)
[2022-07-04] MEDS: Albumin 25% 25 GM/100 ML BOT IVPB SCH ×3 (00:21→13:53)
[2022-07-04] MEDS: HYDROcodone/Acetaminophen 5/325 mg Tablet PO PRN ×3 (00:22→19:05)
[2022-07-04] MEDS: diphenhydrAMINE 25 MG CAP PO PRN ×2 (00:23→13:53)
[2022-07-04] MEDS: Sodium Bicarbonate 150 MEQ in Dextrose 5% in Water 1,000 ML IV SCH ×3 (00:33→15:58)
[2022-07-04 04:36] LABS: #Lymphocytes 0.3 thou/uL (1.20-3.40); #Monocytes 0.2 thou/uL (0.11-0.59); #Neutrophils 3.4 thou/uL (1.40-6.50); %Basophils 0.1 % (0.0-1.0); %Eosinophils 0.3 % (0.0-10.0); %Lymphocytes 6.9 % (21.0-51.0); %Monocytes 5.4 % (0.0-10.0); %Neutrophils 87.3 % (42.0-75.0); Mean Corpuscular HGB CONC 33.5 g/dL (32.0-36.0); Mean Corpuscular Hemoglobin 32.2 pg (27.0-31.0); Mean Corpuscular Volume 95.9 fl (78.0-98.0); Mean Platelet Volume 8.4 fL (7.4-10.4); Platelet Count 78 10x3/uL (130-400); Red Blood Cell (RBC) Count 2.17 mill/uL (4.70-6.10); White Blood Cell (WBC) Count 3.8 10x3/uL (4.8-10.8)
[2022-07-04 04:39] LABS: Albumin 3.6 g/dL (3.4-4.8); Anion Gap 12 mmol/L (10-20); BUN (Urea Nitrogen) 50 mg/dL (8.4-25.7); BUN/Creatinine Ratio 34.72; Calc. Creatinine Clearance 50 mL/min (70-130); Calcium 8.4 mg/dL (7.8-10.44); Carbon Dioxide 25 mmol/L (23-31); Chloride 103 mmol/L (98-107); Estimated GFR 50; Glucose 111 mg/dL (83-110); Phosphorus 3.2 mg/dL (2.3-4.7); Potassium 4.4 mmol/L (3.5-5.1); Sodium 136 mmol/L (136-145)
[2022-07-04] MEDS ORDERED: Megestrol Acetate 800 MG/20 ML UDCUP PO SCH (09:00)
[2022-07-04] MEDS: Digoxin 0.125 MG TAB PO SCH (09:38)
[2022-07-04] MEDS: Tamsulosin HCl 0.4 MG CAP PO SCH (09:39)
[2022-07-04] MEDS: Multivitamin W/ Minerals 1 TAB PO SCH (09:39)
[2022-07-04] MEDS: Benzonatate 100 MG CAP PO SCH ×2 (09:39→14:45)
[2022-07-04] MEDS: guaiFENesin ER 600 MG TAB PO SCH (09:40)
[2022-07-04] MEDS: Pantoprazole 40 MG VIAL IVP SCH (09:42)
[2022-07-04] MEDS: Metoprolol Tartrate 25 MG TAB PO SCH (12:29)
[2022-07-04] MEDS: Acetaminophen 325 MG TAB PO PRN (13:53)
[2022-07-04 15:53] VITALS: BP 106/53; TEMP 98.2
[2022-07-04 19:26] LABS: Hemoglobin 8.6 g/dL (14.0-18.0); Platelet Count 71 10x3/uL (130-400)
== END 2022-07-04 19:58 | disposition home or self-care (01) | DRG 811 ==
LOC: ERS 14:03 → 2NO 18:11 → OBSVTOIN 07-02 07:23
PROVIDERS: ADMIT Emergency Medicine; ATTEND Internal Medicine
PROC: 30233N1 Transfusion of Nonautologous Red Blood Cells into Peripheral Vein, Percutaneous Approach (ICD-10-PCS; principal; 2022-07-02)
DX: D62 Acute posthemorrhagic anemia (principal); I21.A1 Myocardial infarction type 2; I50.33 Acute on chronic diastolic (congestive) heart failure; N17.9 Acute kidney failure, unspecified; C20 Malignant neoplasm of rectum; E87.20 Acidosis, unspecified; K94.03 Colostomy malfunction; C78.7 Secondary malignant neoplasm of liver and intrahepatic bile duct; E87.5 Hyperkalemia; J44.9 Chronic obstructive pulmonary disease, unspecified; I48.91 Unspecified atrial fibrillation; R53.81 Other malaise; K43.5 Parastomal hernia without obstruction or gangrene; K43.9 Ventral hernia without obstruction or gangrene; N40.1 Benign prostatic hyperplasia with lower urinary tract symptoms; R33.8 Other retention of urine; F17.210 Nicotine dependence, cigarettes, uncomplicated; N18.30 Chronic kidney disease, stage 3 unspecified; R30.0 Dysuria; Z91.041 Radiographic dye allergy status; Z86.711 Personal history of pulmonary embolism; Z91.013 Allergy to seafood; Z79.899 Other long term (current) drug therapy; Z85.819 Personal history of malignant neoplasm of unspecified site of lip, oral cavity, and pharynx; Z80.8 Family history of malignant neoplasm of other organs or systems; Z80.0 Family history of malignant neoplasm of digestive organs; Y83.8 Other surgical procedures as the cause of abnormal reaction of the patient, or of later complication, without mention of misadventure at the time of the procedure; K46.9 Unspecified abdominal hernia without obstruction or gangrene
CPT/HCPCS: 36415; 36430; 80048; 80053; 80069; 80162; 81001; 82040; 82248; 82378; 82553; 82570; 83605; 83615; 83880; 84100; 84300; 84484; 84550; 85025; 86850; 86900; 86901; 93005; 93010; 94760; C9113; G0378; J1642; J1815; J2272; J7070; P9016; P9047